=== PATIENT | female | born 1950 | race Hispanic/Latino ===

== ENCOUNTER → 2019-05-10 | Day surgery (SDC) | payer MEDICARE ==
[2019-05-07 10:06] LABS: BASOPHILS # (AUTO) 0.1 (0.0-0.1); BASOPHILS % 0.5 % (0.0-1.0); EOSINOPHILS # (AUTO) 0.2 (0.0-0.4); EOSINOPHILS % 2.5 % (0.0-6.0); HEMATOCRIT 39.5 % (34.2-44.1); LYMPHOCYTES # (AUTO) 2.4 (1.0-3.2); LYMPHOCYTES % 25.3 % (18.0-39.1); MEAN CORPUSCULAR HEMOGLOBIN 30.6 pg (28-32); MEAN CORPUSCULAR HGB CONC 35.4 g/dL (31-35); MEAN CORPUSCULAR VOLUME 86.4 fL (81-99); MONOCYTES # (AUTO) 0.5 (0.2-0.8); MONOCYTES % 5.4 % (4.4-11.3); NEUTROPHILS # (AUTO) 6.3 (2.1-6.9); NEUTROPHILS % 65.7 % (38.7-80.0); PLATELET COUNT 192 x10e3/uL (140-360); RED BLOOD COUNT 4.57 x10e6/uL (3.6-5.1); RED CELL DISTRIBUTION WIDTH 12.1 % (11.7-14.4)
[2019-05-07 10:22] LABS: ANION GAP 13.5 mmol/L (8-16); BLOOD UREA NITROGEN 13 mg/dL (7-26); BUN/CREATININE RATIO 18 (6-25); CALCIUM 9.6 mg/dL (8.4-10.2); CARBON DIOXIDE 27 mmol/L (22-29); CHLORIDE 102 mmol/L (98-107); CREATININE, SERUM 0.71 mg/dL (0.57-1.11); EST GLOMERULAR FILTRATION RATE > 60 ML/MIN (60-); GLUCOSE 140 mg/dL (74-118); POTASSIUM 3.5 mmol/L (3.5-5.1); SODIUM 139 mmol/L (136-145)
[2019-05-07 10:38] LABS: BILIRUBIN,URINE NEGATIVE (NEGATIVE); CLARITY,URINE CLEAR (CLEAR); COLOR,URINE YELLOW (YELLOW); KETONES,URINE NEGATIVE (NEGATIVE); LEUKOCYTE ESTERASE ,URINE NEGATIVE (NEGATIVE); NITRITE,URINE NEGATIVE (NEGATIVE); PROTEIN,URINE DIPSTICK NEGATIVE (NEGATIVE); URINE UROBILINOGEN 0.2 mg/dL (0.2 - 1)
--- NOTE | 2019-05-07 10:59 | Diagnostic Imaging Report ---
Chest, 2 views, 05/07/2019. History: Preop, cholecystitis. Comparison: None available. Findings: The cardiomediastinal silhouette and pulmonary vasculature are within normal limits. There is minimal biapical pleural thickening. Linear opacities are present in the right lower lobe. The lungs are otherwise clear without evidence of consolidation or pleural effusion. Degenerative changes are present throughout the thoracic spine. There are no acute osseous or soft tissue abnormalities. Impression: Right lower lobe atelectasis. Signed by: Gibran Martinez on 05/07/2019 10:56 AM
[~2019-05-10] MED LIST: AMLODIPINE BESY10 MG PO; ASPIR 8181 MG PO; ATORVASTATIN CA10 MG PO; BUPIVACAINE 0.25%/EPI 30ML SDV INJ ONE; CARVEDILOL12.5 MG PO; CEFAZOLIN SOD 1 GM VIAL ONE; DEXAMETHASONE SOD PHOS INJ 4 MG/ML VIAL ONE; FENTANYL CITRATE/PF 100MCG/2 ML INJ ONE; FUROSEMIDE40 MG PO; GLYCOPYRROLATE INJ 1MG/ 5 ML SYR ONE; KETOROLAC TROMETHAMINE 30 MG/ML VIAL ONE; LIDOCAINE HCL 2% LOCAL INJ 5 ML SDV VIAL INJ ONE; LISINOPRIL10 MG PO; METFORMIN HCL500 MG PO; MIDAZOLAM HCL 2 MG/2 ML VIAL ONE; NEOSTIGMINE 5 MG/5ML SYR ONE; ONDANSETRON HCL INJ 2MG/ML 2ML 2 MG/ML VIAL ONE; OXYBUTYNIN CHLOR5 MG PO; PANTOPRAZOLE SO40 MG PO; PROPOFOL IV EMULSION 10 MG/ML 20 ML VIAL ONE; ROCURONIUM BROMIDE 10 MG/ML 5ML VIAL ONE; SEVOFLURANE INHAL SOLN 250 ML PEN BTL ONE
--- OUTSIDE RECORDS SUMMARY | 2019-05-10 07:05 | XMS REPORT | Summary of Care ---
Author Author [facility] Organization [facility] Address Unknown Phone Unavailable Encounter HQ Emerson(FIN) [id number] Date(s): 06/19/18 - 06/19/18 [facility] [address] [address]- Discharge Disposition: Home or Self Care Attending Physician: Pamela Gibbons MD Vital Signs Most recent to 1 2 oldest [Reference Range]: Height 160.02 cm (06/19/18 10:34 AM) Temperature Oral 97.1 DegF [96.4-99.1 DegF] (06/19/18 10:34 AM) Blood Pressure 165/85 mmHg 186/80 mmHg [90-140/60-90 mmHg] *HI* *HI* (06/19/18 11:16 AM) (06/19/18 10:34 AM) Respiratory Rate 16 BRMIN [14-20 BRMIN] (06/19/18 10:34 AM) Peripheral Pulse 67 bpm Rate [60-100 bpm] (06/19/18 10:34 AM) Weight 79.091 kg (06/19/18 10:34 AM) Body Mass Index 30.89 m2 (06/19/18 10:34 AM) Problem List Condition Effective Dates Status Health Status Informant Diabetes Resolved mellitus(Confirmed) Hypertension, Active essential(Confirmed) GERD Active (gastroesophageal reflux disease)(Confirmed) Hypertension(Confirm Resolved ed) Abnormal mammogram Active of left breast(Confirmed) Mixed Active hyperlipidemia(Confi rmed) Obesity(Confirmed) Active Diabetes mellitus Active type 2, controlled(Confirmed ) Allergies, Adverse Reactions, Alerts Substance Reaction Severity Status NKDA Active Medications furosemide 20 mg oral tablet 20 mg=1 tab, PO, BID, # 180 tab, 1 Refill(s), Pharmacy: [facility]/pharmacy #[id number] Start Date: 06/19/18 Stop Date: 06/19/18 Status: Discontinued furosemide 20 mg oral tablet 20 mg=1 tab, PO, BID, # 180 tab, 1 Refill(s), Pharmacy: [facility]/pharmacy #[id number], Dose increased to BID Start Date: 06/19/18 Stop Date: 12/16/18 Status: Ordered metFORMIN 500 mg oral tablet 1,000 mg=2 tab, PO, BID, X 90 day, # 360 tab, 1 Refill(s), Pharmacy: [facility]/pharmac y #[id number] Start Date: 06/19/18 Stop Date: 12/16/18 Status: Completed Results No data available for this section Immunizations Given and Recorded Vaccine Date Status Refusal Reason influenza virus vaccine, inactivated1 05/19/18 Recorded influenza virus vaccine, inactivated2 08/08/17 Given influenza virus vaccine, inactivated 08/18/16 Recorded pneumococcal 13-valent vaccine3 11/09/17 Given pneumococcal 23-valent vaccine 07/19/15 Recorded 1Result Comment: [06/19/2018] @[facility] 2Result Comment: Patient waited in room ten mins no allergic reaction. 3Result Comment: Patient waited in room ten mins no allergic reaction. Procedures Procedure Date Related Diagnosis Body Site Status Diabetic Retinopathy Study 7 field 12/03/18 Completed stereoscopic fundus photography1, 2, 3 Mammogram4, 5, 6, 7 11/21/18 Completed Bone density scan8 11/17/17 Completed Colonoscopy9 04/13/17 Completed [id number] 04/13/17 Completed Tubal ligation Completed 1No DR. Dr Nova 2No DR. Dr Nova 3Dr Avtar 4Return to annual mammogram screening schedule is recommended.(11/17/2018) 5There is no mammographic evidence of malignancy. A 1 year screening mammogram is recommended.(11/22/2019) 6Left breast mass, needs further test. 7Pathology "Dense fibrous breast tissue with distorted benign duct elements" A follow-up left diagnostic mammogram and ultrasound in 6 months is recommended (06/09/2018) 81. Normal bone mineral density of the lumbar spine. 2. Normal bone mineral density of the left femoral neck. 9Mild diverticulosis, IH Next one in [address] Dr De La Cruz 10Gastritis, Reflux esophagitis Dr De La Cruz Social History Social History Type Response Substance Abuse Use: None. Alcohol Never Smoking Status Never smoker; Exposure to Tobacco Smoke None; Cigarette Smoking Last 365 Days No; Reg Smoking Cessation Counseling No entered on: 12/10/18 Assessment and Plan No data available for this section
--- OUTSIDE RECORDS SUMMARY | 2019-05-10 07:05 | XMS REPORT | Summary of Care ---
Author Organization Unknown Address Unknown Phone Unavailable Encounter Dates Location Diagnoses Discharge Providers Disposition 11/30/2013 [facility] Discharge Home Ovi Gann - [address] [place] [address] Diagnosis: 11/30/2013 [place] [id number]- , [place] Shoulder pain, left Reason for Visit LEFT SHOULDER PAIN 3 DAYS Vital Signs Most recent to 1 2 oldest [Reference Range]: Height 165.1 cm (11/30/2013 19:26:00 Tanya/Mills) Temperature Oral 99.1 DegF 98.1 DegF [96.4-99.1 DegF] (11/30/2013 22:23:00 Tanya/[place]) (11/30/2013 19:26:00 Tanya/[facility]) Systolic Blood 165 mmHg 199 mmHg Pressure [90-140 *HI* *HI* mmHg] (11/30/2013 22:23:00 Tanya/[place]) (11/30/2013 19:26:00 Tanya/[place]) Diastolic Blood 80 mmHg 82 mmHg Pressure [60-90 (11/30/2013 22:23:00 Tanya/[place]ills) (11/30/2013 19:26:00 Tanya/[place]) mmHg] Respiratory Rate 18 BRMIN 18 BRMIN [14-20 BRMIN] (11/30/2013 22:23:00 Tanya/[facility]ills) (11/30/2013 19:26:00 Tanya/[facility]) Peripheral Pulse 74 bpm 86 bpm Rate [60-100 bpm] (11/30/2013 22:23:00 Tanya/[facility]ills) (11/30/2013 19:26:00 Tanya/[facility]) Weight 81.818 kg (11/30/2013 19:26:00 Tanya/[facility]) Body Mass Index 30.02 m2 (11/30/2013 19:26:00 Tanya/[place]) Problem List Condition Effective Dates Status Health Status Informant Diabetes Resolved mellitus(Confirmed) Hypertension(Confirm Resolved ed) Allergies, Adverse Reactions, Alerts Status Substance Reaction Severity Active NKDA Medications Medication Instructions Start Date Stop Date Status amLODIPine 10 mg, PO, Daily, 0 Refill(s) 11/30/2013 Ordered metFORMIN PO, QAM, 0 Refill(s) 11/30/2013 Ordered Motrin 800 mg, Route: PO, Drug form: TAB, 11/30/2013 11/30/2013 Completed ONCE, Dosing Weight 81.818, kg, Priority: STAT, Start date: 11/30/13 21:41:00, Stop date: 11/30/13 21:41:00 Motrin 600 mg oral 600 mg=1 tab, PO, Q6H, take with 11/30/2013 Ordered tablet food, # 30 tab, 0 Refill(s) take with food Toprol-XL 50 mg oral PO, BID, 0 Refill(s) 11/30/2013 Ordered tablet, extended release Zestoretic 20 See Instructions, PO, daily, 0 11/30/2013 Ordered mg-12.5 mg oral Refill(s) tablet daily Results ELECTROLYTES Most recent to 1 oldest [Reference Range]: Sodium Lvl [135-145 139 mEq/L mEq/L] (11/30/2013 20:38:00 [facility]) Potassium Lvl 4.2 mEq/L [3.5-5.1 mEq/L] (11/30/2013 20:38:00 [facility]) Chloride Lvl [95-109 102 mEq/L mEq/L] (11/30/2013 20:38:00 [facility]) CO2 [24-32 mEq/L] 27 mEq/L (11/30/2013 20:38:00 [facility]) AGAP [10.0-20.0 14.2 mEq/L mEq/L] (11/30/2013 20:38:00 [facility]) CHEM PANEL Most recent to 1 oldest [Reference Range]: Creatinine Lvl 0.1 mg/dL [0.5-1.4 mg/dL] *LOW* (11/30/2013 20:38:00 [facility]) eGFR 177 mL/min/1.73m2 1 *NA* (11/30/2013 20:38:00 [facility]) BUN [7-22 mg/dL] 15 mg/dL (11/30/2013 20:38:00 [facility]) Glucose Lvl [70-99 141 mg/dL 2 mg/dL] *HI* (11/30/2013 20:38:00 [facility]) Calcium Lvl 9.5 mg/dL [8.5-10.5 mg/dL] (11/30/2013 20:38:00 [facility]) 1Result Comment: The eGFR is calculated using the CKD-EPI formula. In most young, healthy individuals the eGFR will be >90 mL/min/1.73m2. The eGFR declines with age. An eGFR of 60-89 may be normal in some populations, particularly the elderly, for whom the CKD-EPI formula has not been extensively validated. Use of the eGFR is not recommended in the following populations: Individuals with unstable creatinine concentrations, including patients and those with serious co-morbid conditions. Patients with extremes in muscle mass or diet. The data above are obtained from the National Kidney Disease Education Program ( NKDEP) which additionally recommends that when the eGFR is used in patients with extremes of body mass index for purposes of drug dosing, the eGFR should be mul tiplied by the estimated BMI. 2Interpretive Data: Adult reference range values reflect the clinical guidelines of the [place] [employer]. IMMUNOLOGY Most recent to 1 oldest [Reference Range]: CRP [<=2.9 mg/L] 8.6 mg/L *HI* (11/30/2013 20:38:00 [facility]) HEMATOLOGY Most recent to 1 oldest [Reference Range]: WBC [3.7-10.4 K/CMM] 14.4 K/CMM *HI* (11/30/2013 20:38:00 [facility]) RBC [4.20-5.40 5.04 M/CMM M/CMM] (11/30/2013 20:38:00 [facility]) Hgb [12.0-16.0 g/dL] 15.6 g/dL (11/30/2013 20:38:00 [facility]) Hct [36.0-48.0 %] 44.8 % (11/30/2013 20:38:00 [facility]) MCV [81.0-99.0 fL] 88.7 fL (11/30/2013 20:38:00 [facility]) MCH [27.0-31.0 pg] 31.0 pg (11/30/2013 20:38:00 [facility]) MCHC [32.0-36.0 35.0 g/dL g/dL] (11/30/2013 20:38:00 [facility]) RDW [11.5-14.5 %] 12.8 % (11/30/2013 20:38:00 [facility]) Platelet [133-450 275 K/CMM K/CMM] (11/30/2013 20:38:00 [facility]) MPV [7.4-10.4 fL] 10.6 fL *HI* (11/30/2013 20:38:00 [facility]) Segs [45.0-75.0 %] 72.5 % (11/30/2013 20:38:00 [facility]) Lymphocytes 20.4 % [20.0-40.0 %] (11/30/2013 20:38:00 [facility]) Monocytes [2.0-12.0 5.6 % %] (11/30/2013 20:38:00 [facility]) Eosinophils [0.0-4.0 1.1 % %] (11/30/2013 20:38:00 [facility]) Basophils [0.0-1.0 0.4 % %] (11/30/2013 20:38:00 [facility]) Segs-Bands # 10.5 K/CMM [1.5-8.1 K/CMM] *HI* (11/30/2013 20:38:00 [facility]) Lymphocytes # 2.9 K/CMM [1.0-5.5 K/CMM] (11/30/2013 20:38:00 [facility]) Monocytes # [0.0-0.8 0.8 K/CMM K/CMM] (11/30/2013 20:38:00 [facility]) Eosinophils # 0.2 K/CMM [0.0-0.5 K/CMM] (11/30/2013 20:38:00 [facility]) Basophils # [0.0-0.2 0.1 K/CMM K/CMM] (11/30/2013 20:38:00 [facility]) Sed Rate [0-20 29 mm/hr mm/hr] *HI* (11/30/2013 20:38:00 [facility]) Medications Administered During Your Visit No data available for this section Immunizations No data available for this section Social History Social History Type Response Smoking Status Use: Never smoker. Tobacco smoke exposure: None. Did the Patient Smoke Cigarettes Anytime During the Last 365 Days? No. Cessation Counseling Provided? No.
--- OUTSIDE RECORDS SUMMARY | 2019-05-10 07:05 | XMS REPORT | Summary of Care ---
Author Author [facility] Organization [facility] Address Unknown Phone Unavailable Encounter HQ Jose_gerardo(FIN) [id number] Date(s): 04/03/18 - 04/04/18 [facility] [address], [address] [place] [address] [phone] Vital Signs No data available for this section Problem List Condition Effective Dates Status Health Status Informant Diabetes Resolved mellitus(Confirmed) Hypertension, Active essential(Confirmed) GERD Active (gastroesophageal reflux disease)(Confirmed) Hyperlipidemia(Confi Active rmed) Hypertension(Confirm Resolved ed) Abnormal mammogram Active of left breast(Confirmed) Obesity(Confirmed) Active Diabetes mellitus Active type 2, controlled(Confirmed ) Allergies, Adverse Reactions, Alerts Substance Reaction Severity Status NKDA Active Medications No data available for this section Results No data available for this section Immunizations Given and Recorded Vaccine Date Status Refusal Reason pneumococcal 13-valent vaccine1 11/09/17 Given influenza virus vaccine, inactivated2 08/08/17 Given influenza virus vaccine, inactivated 08/18/16 Recorded pneumococcal 23-valent vaccine 07/19/15 Recorded 1Result Comment: Patient waited in room ten mins no allergic reaction. 2Result Comment: Patient waited in room ten mins no allergic reaction. Procedures Procedure Date Related Diagnosis Body Site Status Bone density scan1 11/17/17 Completed Mammogram2, 3 11/17/17 Completed Diabetic Retinopathy Study 7 field 10/24/17 Completed stereoscopic fundus photography4 Colonoscopy5 04/13/17 Completed Endoscopy6 04/13/17 Completed Tubal ligation Completed 11. Normal bone mineral density of the lumbar spine. 2. Normal bone mineral density of the left femoral neck. 2Left breast mass, needs further test. 3Pathology "Dense fibrous breast tissue with distorted benign duct elements" A follow-up left diagnostic mammogram and ultrasound in 6 months is recommended (06/09/2018) 4Dr Avtar 5Mild diverticulosis, IH Next one in 10 [address] Dr De La Cruz 6Gastritis, Reflux esophagitis Dr De La Cruz Social History Social History Type Response Substance Abuse Use: None. Alcohol Never Smoking Status Never smoker; Exposure to Tobacco Smoke None; Cigarette Smoking Last 365 Days No; Reg Smoking Cessation Counseling No entered on: 04/02/18 Assessment and Plan No data available for this section
--- OUTSIDE RECORDS SUMMARY | 2019-05-10 07:05 | XMS REPORT | Summary of Care ---
Author Author [facility] Organization [facility] Address Unknown Phone Unavailable Encounter HQ Emerson(FIN) [id number] Date(s): 11/21/18 - 11/21/18 [facility] [address] [place] [address]- Encounter Diagnosis Encounter for screening mammogram for malignant neoplasm of breast (Final) - Discharge Disposition: Home or Self Care Attending Physician: Pamela Gibbons MD Referring Physician: Pamela Gibbons MD Vital Signs No data available for this [...] 23-valent vaccine 07/19/15 Recorded 1Result Comment: [06/19/2018] @[facility] 2Result Comment: Patient waited in room ten mins no allergic reaction. 3Result Comment: Patient waited in room ten mins no allergic reaction. Procedures Procedure Date Related Diagnosis Body Site Status Mammogram1, 2, 3, 4 11/21/18 Completed Diabetic Retinopathy Study 7 field 09/03/18 Completed stereoscopic fundus photography5, 6 Bone density scan7 11/17/17 Completed Colonoscopy8 7/27/17 Completed Endoscopy9 04/13/17 Completed Tubal ligation Completed 1Return to annual mammogram screening schedule is recommended.(11/17/2018) 2There is no mammographic evidence of malignancy. A 1 year screening mammogram is recommended.(11/22/2019) 3Left breast mass, needs further test. 4Pathology "Dense fibrous breast tissue with distorted benign duct elements" A follow-up left diagnostic mammogram and ultrasound in 6 months is recommended (06/09/2018) 5No DR. Dr Nova 6Dr Avtar 71. Normal bone mineral density of the lumbar spine. 2. Normal bone mineral density of the left femoral neck. 8Mild diverticulosis, IH Next one in 10 years Dr De La Cruz 9Gastritis, Reflux esophagitis Dr De La Cruz Social History Social History Type Response Substance Abuse Use: None. Alcohol Never Smoking Status Never smoker; Exposure to Tobacco Smoke None; Cigarette Smoking Last 365 Days No; Reg Smoking Cessation Counseling No entered on: 11/12/18 Assessment and Plan No data available for this section
--- OUTSIDE RECORDS SUMMARY | 2019-05-10 07:05 | XMS REPORT | Summary of Care ---
Author Author [facility] Organization [facility] Address Unknown Phone Unavailable Encounter HQ Emerson(FIN) [id number] Date(s): 08/08/17 - 08/08/17 [facility] [address], [address] [place], [place] [address]- [phone] Discharge Disposition: Home or Self Care Attending Physician: Pamela Gibbons MD Vital Signs Most recent to 1 oldest [Reference Range]: Height 160.02 cm (08/08/17 1:19 PM) Temperature Oral 97.4 DegF [96.4-99.1 DegF] (08/08/17 1:19 PM) Blood Pressure 156/77 mmHg [90-140/60-90 mmHg] *HI* (08/08/17 1:19 PM) Respiratory Rate 16 BRMIN [14-20 BRMIN] (08/08/17 1:19 PM) Peripheral Pulse 81 bpm Rate [60-100 bpm] (08/08/17 1:19 PM) Weight 81.818 kg (08/08/17 1:19 PM) Body Mass Index 31.95 m2 (08/08/17 1:19 PM) Problem List Condition Effective Dates Status Health Status Informant Diabetes Resolved mellitus(Confirmed) Hypertension, Active essential(Confirmed) GERD Active (gastroesophageal reflux disease)(Confirmed) Hyperlipidemia(Confi Active rmed) Hypertension(Confirm Resolved ed) Obesity(Confirmed) Active Diabetes mellitus Active type 2, controlled(Confirmed ) Allergies, Adverse Reactions, Alerts Substance Reaction Severity Status NKDA Active Medications amLODIPine 10 mg oral tablet 10 mg=1 tab, PO, Daily, # 90 tab, 1 Refill(s), Pharmacy: [facility]/pharmacy #[id number] Start Date: 08/08/17 Status: Ordered atorvastatin 10 mg oral tablet 10 mg=1 tab, PO, Bedtime, # 90 tab, 1 Refill(s), Pharmacy: [facility]/pharmacy #[id number] Start Date: 08/08/17 Status: Ordered Blood Glucose Test Strips 1 box, TOP, Before Breakfast, # 100 strip, 11 Refill(s) Start Date: 08/08/17 Status: Ordered furosemide 20 mg oral tablet 20 mg=1 tab, PO, Daily, # 30 tab, 3 Refill(s), [id number] Start Date: 08/08/17 Status: Ordered latanoprost ophthalmic 0.005% solution 1 drp, Each Affected Eye, Bedtime, # 1 btl, 1 Refill(s) Start Date: 08/08/17 Status: Ordered Results No data available for this section Immunizations Given and Recorded Vaccine Date Status Refusal Reason influenza virus vaccine, inactivated1 08/08/17 Given influenza virus vaccine, inactivated 08/18/16 Recorded pneumococcal 23-valent vaccine 07/19/15 Recorded 1Result Comment: Patient waited in room ten mins no allergic reaction. Procedures Procedure Date Related Diagnosis Body Site Examination of eye1 05/02/17 Colonoscopy2 04/13/17 Endoscopy3 04/13/17 Eye examination4 05/13/16 Tub[address] 1[address] Avtar 2Mild diverticulosis, IH Next one in 10 [address] Dr De La Cruz 3Gastritis, Reflux esophagitis Dr De La Cruz 4Dr.Meliton Nova Social History Social History Type Response Alcohol Never Smoking Status Never smoker; Exposure to Tobacco Smoke None; Cigarette Smoking Last 365 Days No; Reg Smoking Cessation Counseling No Assessment and Plan No data available for this section
--- OUTSIDE RECORDS SUMMARY | 2019-05-10 07:05 | XMS REPORT | Summary of Care ---
Author Author [facility] Organization [facility] Address Unknown Phone Unavailable Encounter HQ Encntr_alias(FIN) [id number] Date(s): 08/27/17 - 08/28/17 [facility] [address], [address] [place] [address]- [phone] Vital Signs No data available for this section Problem List Condition Effective Dates Status Health Status Informant Diabetes Resolved mellitus(Confirmed) Hypertension, Active essential(Confirmed) GERD Active (gastroesophageal reflux disease)(Confirmed) Hyperlipidemia(Confi Active rmed) Hypertension(Confirm Resolved ed) Obesity(Confirmed) Active Diabetes mellitus Active type 2, controlled(Confirmed ) Allergies, Adverse Reactions, Alerts Substance Reaction Severity Status NKDA Active Medications pantoprazole 20 mg oral enteric coated tablet 20 mg=1 tab, PO, Daily, # 30 tab, 0 Refill(s), Pharmacy: [facility]/pharmacy #[id number] Start Date: 08/27/17 Stop Date: 09/26/17 Status: Ordered Results No data available for [...]
--- OUTSIDE RECORDS SUMMARY | 2019-05-10 07:05 | XMS REPORT | Continuity of Care Document ---
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 Name Role Phone [employer] Unavailable Unavailable Problems Problem Status Onset Date Classification Date Reported Comments Source ROUTINE MAMMO - NO SYMPTOMS Active 11/13/2018 [facility] Unspecified lump in the left breast, unspecified quadrant 07/03/2018 01/14/2019 [facility] Diarrhea, unspecified 04/02/2018 10/20/2018 [facility] DX: ABNORMAL MAMMOGRAM OF LEFT BREAST Active 03/30/2018 [facility] NAUSEA [facility] 11/27/2017 [facility] DX: ABN MAMMO LT BREAST Active 11/21/2017 [facility] ROUTINE SCREENING LAST MMG W///DX: Active 11/14/2017 [facility] Discharge Diagnosis: Shoulder pain, left 11/30/2013 12/03/2013 [facility] LEFT SHOULDER PAIN 3 DAYS Active 11/30/2013 [facility] Diabetes mellitus (disorder) Resolved Problem 04/23/2019 [facility] Essential hypertension (disorder) Active Problem 04/23/2019 [facility] Gastroesophageal reflux disease (disorder) Active Problem 04/23/2019 [facility] Hypertensive disorder, systemic arterial (disorder) Resolved Problem 04/23/2019 [facility] Obesity (disorder) Active Problem 04/23/2019 [facility] Diabetes mellitus type 2 (disorder) Active Problem 04/23/2019 [facility] Encounter for screening mammogram for malignant neoplasm of breast 11/23/2018 [facility] Age-related osteoporosis without current pathological fracture 02/23/2018 [facility] Hyperlipidemia (disorder) Active Problem 11/23/2018 [facility] Other abnormal and inconclusive findings on diagnostic imaging of breast 01/14/2019 [facility] Unspecified lump in the left breast, upper outer quadrant 03/05/2018 [facility] Mammography abnormal (finding) Active Problem 02/18/2019 [facility] Essential (primary) hypertension 10/20/2018 [facility] Type 2 diabetes mellitus without complications 10/20/2018 [facility] ferry terminal supervisor (current) use of oral hypoglycemic drugs 10/20/2018 [facility] Mixed hyperlipidemia (disorder) Active Problem 04/23/2019 [facility] INCONCLUSIVE MAMMOGRAM Active [facility] AGE-RELATED OSTEOPOROSIS W/O CURRENT PAT Active [facility] OTH ABN AND INCONCLUSIVE FINDINGS ON DX Active [facility] Medications Medication Details Route Status Patient Instructions Ordering Provider Order Date Source pantoprazole 20 mg oral enteric coated tablet 20 mg=1 tab, PO, Daily, # 90 tab, 1 Refill(s), [id number] pantoprazole 20 mg oral enteric coated tablet See Instructions, TAKE 1 TABLET BY MOUTH DAILY, # 90 tab, 1 Refill(s), Pharmacy: [facility]/pharmacy #[id number] Active 03/12/2019 [facility] lisinopril 40 mg oral tablet 40 mg=1 tab, PO, BID, # 180 tab, 1 Refill(s), Pharmacy: [facility]/pharmacy #[id number] Active 03/12/2019 [facility] Furosemide 20 MG Oral Tablet 20 mg=1 tab, PO, BID, # 180 tab, 1 Refill(s), Pharmacy: [facility]/pharmacy #[id number], Dose increased to BID Active 03/12/2019 [facility] carvedilol 12.5 mg oral tablet See Instructions, TOME 2 TABLETAS POR VIA ORAL EN LA MANANA Y 1 TABLETA EN LA NOCHE, # 45 tab, 1 Refill(s), Pharmacy: [facility]/pharmacy #[id number] Active 03/12/2019 [facility] atorvastatin 10 mg oral tablet See Instructions, TOME LISA TABLETA POR VIA ORAL TODOS [place]S AL ACOSTARSE, # 90 tab, 1 Refill(s), Pharmacy: [facility]/pharmacy #[id number] Active 03/12/2019 [facility] amLODIPine 10 mg oral tablet =1 tab, PO, Daily, # 90 tab, 1 Refill(s), Pharmacy: [facility]/pharmacy #[id number] Active 03/12/2019 [facility] Metformin hydrochloride 500 MG Oral Tablet 1,000 mg=2 tab, PO, BID-Meals, # 360 tab, 1 Refill(s), [id number] Active 03/12/2019 [facility] Metformin hydrochloride 500 MG Oral Tablet 1,000 mg=2 tab, PO, BID-Meals, # 360 tab, 1 Refill(s) Inactive 03/12/2019 [facility] oxybutynin 5 mg oral tablet 5 mg=1 tab, PO, BID, # 180 tab, 1 Refill(s) Active 03/12/2019 [facility] carvedilol 12.5 mg oral tablet See Instructions, TOME 2 TABLETAS POR VIA ORAL EN LA MANANA Y 1 TABLETA EN LA NOCHE, # 135 tab, 1 Refill(s), [id number] Active 12/10/2018 [facility] carvedilol 12.5 mg oral tablet See Instructions, 2 tab PO AM and 1 tab pm, # 45 tab, 1 Refill(s), [id number] Active 11/12/2018 [facility] Metoprolol Succinate ER 50 mg oral tablet, extended release =1 tab, PO, BID, # 180 tab, Refill(s) 1, Pharmacy: [facility]/pharmacy #[id number] No Longer Active 11/09/2018 [facility] pantoprazole 20 mg oral enteric coated tablet See Instructions, TAKE 1 TABLET BY MOUTH DAILY, # 90 tab, 1 Refill(s), Pharmacy: [facility]/pharmacy #[id number] No Longer Active 10/03/2018 [facility] atorvastatin 10 mg oral tablet =1 tab, PO, Bedtime, # 90 tab, [id number] Active 09/22/2018 [facility] ONE TOUCH ULTRA BLUE TEST STRP See Instructions, # 100 strip, Refill(s) 12, USE DIRECTED EVERY DAY, Pharmacy: [facility]/pharmacy #[id number] Active 09/14/2018 [facility] ciprofloxacin 500 mg oral tablet 500 mg=1 tab, PO, Q12H, X 10 day, # 20 tab, 0 Refill(s), Pharmacy: [facility]/pharmacy #[id number] No Longer Active 07/31/2018 [facility] Metformin hydrochloride 500 MG Oral Tablet 1,000 mg=2 tab, PO, BID, X 90 day, # 360 tab, 1 Refill(s), Pharmacy: [facility]/pharmacy #[id number] No Longer Active 06/19/2018 [facility] Furosemide 20 MG Oral Tablet 20 mg=1 tab, PO, BID, # 180 tab, 1 Refill(s), [id number], Dose increased to BID Active 06/19/2018 [facility] Furosemide 20 MG Oral Tablet 20 mg=1 tab, PO, BID, # 180 tab, 1 Refill(s), [id number] Inactive 06/19/2018 [facility] Sodium Chloride 0.9% (Bolus) IV 1,000 mL, Infuse Over: 1 hr, Route: IV, ONCE, Priority: STAT, Dosing Weight 79.545 kg, Start date: 04/02/18 8:22:00 CDT, Stop date: 04/02/18 8:22:00 CDT Inactive 04/02/2018 [facility] Ondansetron 4 mg, 2 mL, Route: IVP, Drug form: INJ, ONCE, Dosing Weight 79.545, kg, Priority: STAT, Start date: 04/02/18 8:22:00 CDT, Stop date: 04/02/18 8:22:00 CDTNotes: (Same as: Shy) MEDICATION WASTE * Product Size: 4 mg Product Wasted: ___ mg Inactive 04/02/2018 [facility] pantoprazole 20 mg oral enteric coated tablet See Instructions, TAKE 1 TABLET BY MOUTH DAILY, # 90 tab, 1 Refill(s) Active 03/28/2018 [facility] 24 HR Metoprolol Tartrate 50 MG Extended Release Tablet [Toprol] 50 mg=1 tab, PO, BID, # 180 tab, 1 Refill(s) Active 03/28/2018 [facility] Metformin hydrochloride 500 MG Oral Tablet 1,000 mg=2 tab, PO, BID, X 90 day, # 360 tab, 1 Refill(s) Active 03/28/2018 [facility] lisinopril 40 mg oral tablet 40 mg=1 tab, PO, BID, # 180 tab, 1 Refill(s) Active 03/28/2018 [facility] Furosemide 20 MG Oral Tablet See Instructions, 1 tab PO in AM take half tab in PM, # 135 tab, 1 Refill(s) Active 03/28/2018 [facility] atorvastatin 10 mg oral tablet 10 mg=1 tab, PO, Bedtime, # 90 tab, 1 Refill(s) Active 03/28/2018 [facility] Aspirin Enteric Coated 81 mg oral delayed release tablet See Instructions, TAKE 1 TABLET BY MOUTH DAILY, # 100 tab, 1 Refill(s) Active 03/28/2018 [facility] amLODIPine 10 mg oral tablet 10 mg=1 tab, PO, Daily, # 90 tab, 1 Refill(s) Active 03/28/2018 [facility] Trazodone Hydrochloride 50 MG Oral Tablet 50 mg=1 tab, PO, Bedtime, # 30 tab, 1 Refill(s), [id number] Active 11/09/2017 [facility] Furosemide 20 MG Oral Tablet See Instructions, 1 tab PO in AM take half tab in PM, # 135 tab, 1 Refill(s), Pharmacy: [facility]/pharmacy #[id number] Active 11/09/2017 [facility] pantoprazole 20 mg oral enteric coated tablet See Instructions, TAKE 1 TABLET BY MOUTH DAILY, # 90 tab, 1 Refill(s), Pharmacy: [facility]/pharmacy #[id number] Active 11/09/2017 [facility] Furosemide 20 MG Oral Tablet 20 mg=1 tab, PO, Daily, # 90 tab, 1 Refill(s), Pharmacy: [facility]/pharmacy #[id number] Inactive 11/09/2017 [facility] Metformin hydrochloride 500 MG Oral Tablet 1,000 mg=2 tab, PO, BID, X 90 day, # 360 tab, 1 Refill(s), Pharmacy: [facility]/pharmacy #[id number] Active 11/09/2017 [facility] lisinopril 40 mg oral tablet 40 mg=1 tab, PO, BID, # 180 tab, 1 Refill(s), Pharmacy: [facility]/pharmacy #[id number] Active 11/09/2017 [facility] amLODIPine 10 mg oral tablet 10 mg=1 tab, PO, Daily, # 90 tab, 1 Refill(s), Pharmacy: [facility]/pharmacy #[id number] Active 11/09/2017 [facility] atorvastatin 10 mg oral tablet 10 mg=1 tab, PO, Bedtime, # 90 tab, 1 Refill(s), Pharmacy: [facility]/pharmacy #[id number] Active 11/09/2017 [facility] 24 HR Metoprolol Tartrate 50 MG Extended Release Tablet [Toprol] 50 mg=1 tab, PO, BID, # 180 tab, 1 Refill(s), Pharmacy: [facility]/pharmacy #[id number] Active 11/09/2017 [facility] pantoprazole 20 mg oral enteric coated tablet 20 mg=1 tab, PO, Daily, # 30 tab, 0 Refill(s), [facility] Active 08/27/2017 [facility] Blood Glucose Test Strips 1 box, TOP, Before Breakfast, # 100 strip, 11 Refill(s) Active 08/08/2017 [facility] atorvastatin 10 mg oral tablet 10 mg=1 tab, PO, Bedtime, # 90 tab, 1 Refill(s), [facility] Active 08/08/2017 [facility] amLODIPine 10 mg oral tablet 10 mg=1 tab, PO, Daily, # 90 tab, 1 Refill(s), [facility] Active 08/08/2017 [facility] Furosemide 20 MG Oral Tablet 20 mg=1 tab, PO, Daily, # 30 tab, 3 Refill(s), [facility] Active 08/08/2017 [facility] latanoprost 0.05 MG/ML Ophthalmic Solution 1 drp, Each Affected Eye, Bedtime, # 1 btl, 1 Refill(s) Active 08/08/2017 [facility] Ibuprofen 600 MG Oral Tablet [Motrin] 600 mg=1 tab, PO, Q6H, take with food, # 30 tab, 0 Refill(s)take with food Active 12/01/2013 [facility] Motrin 800 mg, Route: PO, Drug form: TAB, ONCE, Dosing Weight 81.818, kg, Priority: STAT, Start date: 11/30/13 21:41:00, Stop date: 11/30/13 21:41:00 Inactive 12/01/2013 [facility] Metformin PO, QAM, 0 Refill(s) Active 12/01/2013 [facility] Amlodipine 10 mg, PO, Daily, 0 Refill(s) Active 12/01/2013 [facility] Hydrochlorothiazide 12.5 MG / Lisinopril 20 MG Oral Tablet [Zestoretic 20/12.5] See Instructions, PO, daily, 0 Refill(s)daily Active 12/01/2013 [facility] 24 HR Metoprolol Tartrate 50 MG Extended Release Tablet [Toprol] PO, BID, 0 Refill(s) Active 12/01/2013 [facility] Allergies, Adverse Reactions, Alerts Substance Category Reaction Severity Reaction type Status Date Reported Comments Source No Known Medication Allergies Assertion Drug allergy [facility] Immunizations Immunization Date Given Site Status Last Updated Comments Source influenza virus vaccine, inactivated<sup>1</sup> 05/19/2018 completed [facility] Result Comment: [06/19/2018] @[facility] pneumococcal 13-valent vaccine<sup>3</sup> 11/09/2017 Left Deltoid completed [facility] Result Comment: Patient waited in room ten mins no allergic reaction. Medical [facility] pneumococcal 13-valent vaccine<sup>1</sup> 11/09/2017 Left Deltoid completed [facility] Result Comment: Patient waited in room ten mins no allergic reaction. Medical [facility] influenza virus vaccine, inactivated<sup>1</sup> 08/08/2017 Left Deltoid completed [facility] Result Comment: Patient waited in room ten mins no allergic reaction. [facility] influenza virus vaccine, inactivated<sup>2</sup> 08/08/2017 Left Deltoid completed [facility] Result Comment: Patient waited in room ten mins no allergic reaction. [facility] influenza virus vaccine, inactivated 08/18/2016 completed [facility] pneumococcal 23-valent vaccine 07/19/2015 completed [facility] Results Order Name Results Value Reference Range Date Interpretation Comments Source CHEM PANEL Lipase Lvl 108 73 - 393 04/02/2018 [facility] CHEM PANEL Phosphorus 2.8 2.5 - 4.5 04/02/2018 [facility] CHEM PANEL Magnesium Lvl 1.7 1.8 - 2.4 04/02/2018 [facility] CHEM PANEL Lactic Acid Lvl 1.0 0.5 - 2.2 04/02/2018 [facility] CHEM PANEL Globulin 4.0 2.7 - 4.2 04/02/2018 [facility] CHEM PANEL A/G Ratio 0.9 0.7 - 1.6 04/02/2018 [facility] CHEM PANEL Bili Direct 0.2 0.0 - 0.3 04/02/2018 [facility] CHEM PANEL Bili Indirect 0.3 0.0 - 1.0 04/02/2018 [facility] CHEM PANEL Bili Total 0.5 0.2 - 1.3 04/02/2018 [facility] CHEM PANEL AST 33 0 - 37 04/02/2018 [facility] CHEM PANEL Alk Phos 106 39 - 136 04/02/2018 [facility] CHEM PANEL Albumin Lvl 3.7 3.5 - 5.0 04/02/2018 [facility] CHEM PANEL ALT 53 0 - 65 04/02/2018 [facility] CHEM PANEL Total Protein 7.7 6.4 - 8.4 04/02/2018 [facility] CHEM PANEL eGFR 98 04/02/2018 Result Comment: The eGFR is calculated using the [...] from the National Kidney Disease Education Program (NKDEP) which additionally recommends that when the eGFR is used in patients with extremes of body mass index for purposes of drug dosing, the eGFR should be multiplied by the estimated BMI. [facility] CHEM PANEL CO2 29 24 - 32 04/02/2018 [facility] CHEM PANEL Calcium Lvl 8.5 8.5 - 10.5 04/02/2018 [facility] CHEM PANEL Creatinine Lvl 0.54 0.50 - 1.40 04/02/2018 [facility] CHEM PANEL Potassium Lvl 3.5 3.5 - 5.1 04/02/2018 [facility] CHEM PANEL Chloride Lvl 108 95 - 109 04/02/2018 [facility] CHEM PANEL Sodium Lvl 146 135 - 145 04/02/2018 [facility] CHEM PANEL BUN 6 7 - 22 04/02/2018 [facility] CHEM PANEL Glucose Lvl 131 70 - 99 04/02/2018 [facility] CHEM PANEL AGAP 12.5 10.0 - 20.0 04/02/2018 [facility] HEMATOLOGY Monocytes 6.1 2.0 - 12.0 04/02/2018 [facility] Lymphocytes 18.3 20.0 - 40.0 04/02/2018 [facility] Segs 72.1 45.0 - 75.0 04/02/2018 [facility] Lymphocytes # 1.7 1.0 - 5.5 04/02/2018 [facility] Neutrophils # 6.6 1.5 - 8.1 04/02/2018 [facility] HEMATOLOGY Basophils 0.4 0.0 - 1.0 04/02/2018 [facility] Eosinophils 3.1 0.0 - 4.0 04/02/2018 [facility] Monocytes # 0.6 0.0 - 0.8 04/02/2018 [facility] Eosinophils # 0.3 0.0 - 0.5 04/02/2018 [facility] MCHC 35.4 32.0 - 36.0 04/02/2018 [facility] MCH 30.9 27.0 - 31.0 04/02/2018 [facility] Platelet 226 133 - 450 04/02/2018 [facility] RDW 12.8 11.5 - 14.5 04/02/2018 [facility] MPV 8.2 7.4 - 10.4 04/02/2018 [facility] Hct 40.4 36.0 - 48.0 04/02/2018 [facility] Hgb 14.3 12.0 - 16.0 04/02/2018 [facility] WBC 9.2 3.7 - 10.4 04/02/2018 [facility] RBC 4.63 4.20 - 5.40 04/02/2018 [facility] MCV 87.2 80.0 - 98.0 04/02/2018 [facility] URINE AND STOOL UA Bili Negative *NA* (04/02/18 8:30 AM) Negative 04/02/2018 [facility] URINE AND STOOL UA Ketones Negative mg/dL Negative mg/dL 04/02/2018 [facility] URINE AND STOOL UA Blood Moderate *ABN* (04/02/18 8:30 AM) Negative 04/02/2018 [facility] URINE AND STOOL UA Urobilinogen 2.0 0.1 - 1.0 04/02/2018 [facility] URINE AND STOOL UA Nitrite Negative (04/02/18 8:30 AM) Negative 04/02/2018 [facility] URINE AND STOOL UA Leuk Est Negative (04/02/18 8:30 AM) Negative 04/02/2018 [facility] URINE AND STOOL UA WBC 1 0 - 5 04/02/2018 [facility] URINE AND STOOL UA Sq Epi Few /LPF Few /LPF 04/02/2018 [facility] URINE AND STOOL UA Bacteria Occasional /HPF None Seen /HPF 04/02/2018 [facility] URINE AND STOOL UA RBC 5 0 - 2 04/02/2018 [facility] URINE AND STOOL UA Mucus Few /LPF None Seen /LPF 04/02/2018 [facility] URINE AND STOOL UA Turbidity Slight *ABN* (04/02/18 8:30 AM) Clear 04/02/2018 [facility] URINE AND STOOL UA Spec Grav 1.014 <=1.030 04/02/2018 [facility] URINE AND STOOL UA pH 5.0 5.0 - 8.0 04/02/2018 [facility] URINE AND STOOL UA Glucose Negative mg/dL Negative mg/dL 04/02/2018 [facility] URINE AND STOOL UA Protein Negative mg/dL Negative mg/dL 04/02/2018 [facility] URINE AND STOOL UA Color Yellow *NA* (04/02/18 8:30 AM) Yellow 04/02/2018 [facility] CHEM PANEL eGFR 177 12/01/2013 <sup>1</sup>Result Comment: The eGFR is calculated using the CKD-EPI formula. In most young, healthy individuals the eGFR will be >90 mL/min/1.73m2. The eGFR declines with age. An eGFR of 60-89 may be normal in some populations, particularly the elderly, for whom the CKD-EPI formula has not been extensively validated. Use of the eGFR is not recommended in the following populations:& lt;br/>
Individuals with unstable creatinine concentrations, including patients and those with serious co-morbid conditions.

Patients with extremes in muscle mass or diet.

The data above are obtained from the National Kidney Disease Education Program (NKDEP) which additionally recommends that when the eGFR is used in patients with extremes of body mass index for purposes of drug dosing, the eGFR should be multiplied by the estimated BMI. [facility] CHEM PANEL AGAP 14.2 10.0 - 20.0 12/01/2013 [facility] CHEM PANEL BUN 15 7 - 22 12/01/2013 [facility] CHEM PANEL Glucose Lvl 141 70 - 99 12/01/2013 <sup>2</sup>Interpretive Data: Adult reference range values reflect the clinical guidelines
of the [place] [employer]. [facility] CHEM PANEL Sodium Lvl 139 135 - 145 12/01/2013 [facility] CHEM PANEL CO2 27 24 - 32 12/01/2013 [facility] CHEM PANEL Potassium Lvl 4.2 3.5 - 5.1 12/01/2013 [facility] CHEM PANEL Chloride Lvl 102 95 - 109 12/01/2013 [facility] CHEM PANEL Calcium Lvl 9.5 8.5 - 10.5 12/01/2013 [facility] CHEM PANEL Creatinine Lvl 0.1 0.5 - 1.4 12/01/2013 [facility] HEMATOLOGY Sed Rate 29 0 - 20 12/01/2013 [facility] HEMATOLOGY MCV 88.7 81.0 - 99.0 12/01/2013 [facility] HEMATOLOGY RBC X 10x6 5.04 4.20 - 5.40 12/01/2013 [facility] HEMATOLOGY Hct 44.8 36.0 - 48.0 12/01/2013 [facility] HEMATOLOGY MCH 31.0 27.0 - 31.0 12/01/2013 [facility] HEMATOLOGY Platelet 275 133 - 450 12/01/2013 [facility] HEMATOLOGY MCHC 35.0 32.0 - 36.0 12/01/2013 [facility] HEMATOLOGY RDW 12.8 11.5 - 14.5 12/01/2013 [facility] HEMATOLOGY MPV 10.6 7.4 - 10.4 12/01/2013 [facility] HEMATOLOGY Hgb 15.6 12.0 - 16.0 12/01/2013 [facility] HEMATOLOGY WBC X 10x3 14.4 3.7 - 10.4 12/01/2013 [facility] HEMATOLOGY Basophils # 0.1 0.0 - 0.2 12/01/2013 [facility] HEMATOLOGY Monocytes 5.6 2.0 - 12.0 12/01/2013 [facility] HEMATOLOGY Eosinophils 1.1 0.0 - 4.0 12/01/2013 [facility] HEMATOLOGY Lymphocytes 20.4 20.0 - 40.0 12/01/2013 [facility] HEMATOLOGY Segs 72.5 45.0 - 75.0 12/01/2013 [facility] HEMATOLOGY Segs-Bands # 10.5 1.5 - 8.1 12/01/2013 [facility] HEMATOLOGY Lymphocytes # 2.9 1.0 - 5.5 12/01/2013 [facility] HEMATOLOGY Monocytes # 0.8 0.0 - 0.8 12/01/2013 [facility] HEMATOLOGY Eosinophils # 0.2 0.0 - 0.5 12/01/2013 [facility] HEMATOLOGY Basophils 0.4 0.0 - 1.0 12/01/2013 [facility] IMMUNOLOGY C-REACTIVE PROTEIN 8.6 <=2.9 mg/L 12/01/2013 [facility] Pathology Reports No Data Provided for This Section Diagnostic Reports Report Value Date Source Breast Mammo Scrn MANAV incl CAD MA BILATERAL DIGITAL SCREENING MAMMOGRAM WITH CAD: 11/21/2018 Current study was evaluated with a Computer Aided Detection (CAD) system. COMPARISON:Comparison is made to exams dated: 06/27/2018 mammogram, 12/08/2017 mammogram, 11/27/2017 mammogram, and 11/17/2017 mammogram - [facility]. TECHNIQUE: Mammographic views were obtained using digital acquisition. Slacka Version 1.3 was utilized for computer aided detection. FINDINGS: The tissue of both breasts is heterogeneously dense, which could obscure detection of small masses. There are benign calcifications in both breasts. There also is a biopsy clip in the left breast. No significant masses, calcifications, or other findings are seen in either breast. There has been no significant interval change. IMPRESSION: BENIGN RECOMMENDATION:There is no mammographic evidence of malignancy. A 1 year screening mammogram is recommended.(11/22/2019) This exam was interpreted at [id number] for [facility]. Kamaljit Jordan M.D. ap/penrad:11/22/2018 08:36:21 Supervisor Laboratory Animal Facility(s): [facility]ale Rucker, [facility] letter sent: BI-RADS 1/2 Dense Mammogram BI-RADS: 2 Benign 11/21/2018 [facility] Breast Complete Uni US COMPLETE ULTRASOUND OF LEFT BREAST AND AXILLA: 06/27/2018 CLINICAL: Abnormal mammogram, mammographic nodule/density 6 month postbiopsy follow up. COMPARISON:Comparison is made to exams dated: 06/27/2018 mammogram, 12/08/2017 mammogram, 12/08/2017 ultrasound biopsy, 11/27/2017 ultrasound, 11/17/2017 mammogram, and 11/27/2017 mammogram - [facility]. TECHNIQUE: Color flow and real-time ultrasound of the left breast four quadrants and axilla regions were performed. Olivo scale images of the real-time examination were reviewed. All 4 quadrants, the retroareolar region and axilla are evaluated in this exam. FINDINGS: There is a stable small benign biopsied mass left breast at 2 o'clock that correlates with ultrasound. No abnormalities were seen sonographically in the left axilla. There has been no significant interval change. IMPRESSION: BENIGN There is no suspicious sonographic abnormality seen in the left breast to correspond with the initial mammographic densities which is most consistent with normal fibroglandular tissue. There is no sonographic evidence of malignancy. Return to annual mammogram screening schedule is recommended.(11/17/2018) The results were reviewed with the patient. This exam was interpreted at [id number] for [facility]. Eder Salazar M.D. jt/:06/27/2018 10:13:25 Supervisor Laboratory Animal Facility(s): Willard Caceres [facility] letter sent: BI-RADS 1/2 Ultrasound BI-RADS: 2 Benign 06/27/2018 [facility] Breast Mammo Diag UNI incl CAD MA UNILATERAL LEFT DIGITAL DIAGNOSTIC MAMMOGRAM WITH CAD: 06/27/2018 CLINICAL: Left breast mass benign bx follow up. Current study was evaluated with a Computer Aided Detection (CAD) system. COMPARISON:Comparison is made to exams dated: 11/27/2017 mammogram, 11/17/2017 mammogram, 11/27/2017 ultrasound, and 12/08/2017 ultrasound biopsy - [facility]. TECHNIQUE: Mammographic views were obtained using digital acquisition. Slacka Version 1.3 was utilized for computer aided detection. FINDINGS: The tissue of left breast is heterogeneously dense, which could obscure detection of small masses. Scattered densities are noted in the left breast. There is a biopsy clip in the left breast. No significant masses, calcifications, or other findings are seen in the breast. IMPRESSION: INCOMPLETE: NEEDS ADDITIONAL IMAGING EVALUATION RECOMMENDATION:Scattered densities are noted in the left breast. Further evaluation with ultrasound is recommended. The results were reviewed with the patient. This exam was interpreted at [id number] for [facility]. SUMMARY: Ultrasound will be performed at this time; please see dedicated separate report. Ultrasound will also reevaluate prior biopsy site. Eder colby/penrad:06/27/2018 09:18:26 Supervisor Laboratory Animal Facility(s): Gale Rucker [facility] Mammogram BI-RADS: 0 Indeterminate 06/27/2018 [facility] Mammo Diag UNI incl CAD MA UNILATERAL LEFT DIGITAL DIAGNOSTIC MAMMOGRAM WITH CAD POST-PROCEDURE IMAGING FOR MARKER PLACEMENT: 12/08/2017 CLINICAL: Post biopsy clip confirmation mammogram after ultrasound biopsy. Current study was evaluated with a Computer Aided Detection (CAD) system. COMPARISON:Comparison is made to exams dated: 12/08/2017 ultrasound biopsy, 11/27/2017 ultrasound, 11/27/2017 mammogram, and 11/17/2017 mammogram - [facility]. TECHNIQUE: Mammographic views were obtained using digital acquisition. Slacka Version 1.3 was utilized for computer aided detection. FINDINGS: The tissue of left breast is heterogeneously dense, which could obscure detection of small masses. Post procedure digital mammogram demonstrates the biopsy clip in appropriate position. No other significant interval change. IMPRESSION: POST PROCEDURE MAMMOGRAM FOR MARKER PLACEMENT RECOMMENDATION:Biopsy clip is in appropriate position. Please see biopsy report for further details. Follow up with ACR/SBI guidelines. This exam was interpreted at [id number] for [facility]. Eder colby/penrad:12/08/2017 12:25:25 Supervisor Laboratory Animal Facility(s): Gale Rucker [facility] Mammogram BI-RADS: Post-procedure mammogram for marker placement 12/08/2017 [facility] Breast BX Uni w Clip Primary Side US ULTRASOUND GUIDED BIOPSY LEFT BREAST WITH MARKING DEVICE INSERTED AND POST DIGITAL MAMMOGRAPHIC AND ULTRASOUND IMAGIN12/08/2017 CLINICAL: Left 2 o'clock Breast Mass. PATIENT CONSENT: Oral and written informed consent was obtained. Risks, benefits, and alternatives were discussed with the patient. Risks include but are not limited to pain, infection, bleeding, incomplete procedure, repeat procedure, pneumothorax, damage to surrounding tissues, and allergic reaction. The patient understands the plan and wishes to proceed. A time out was performed immediately prior to the procedure to confirm the patient's identity (name/date of ) and correct procedure site. Correlation is made to exams dated: 11/27/2017 mammogram, 11/27/2017 ultrasound, and 11/17/2017 mammogram - [facility]. An ultrasound guided biopsy using real-time ultrasound was performed for the concerning 9 mm indistinct lobulated mass located in the left breast at 2 o'clock posterior depth 7 cm from the nipple. This was described on the previous ultrasound report. The skin was prepped in the usual manner. 5 ccs of 1% lidocaine was administered during the procedure. A skin cassie was made in the breast. The abnormality was approached from the lateral aspect. A 14 gauge biopsy needle was placed adjacent to the abnormality through an introducer device under ultrasound guidance. Once the needle was documented to be in the correct location, multiple specimens were obtained using an Achieve automated firing device. A Gel Tony UltraCor S shaped clip was inserted into the biopsy cavity. A skin adhesive and a sterile dressing were applied to the access site. Post procedure digital mammographic and ultrasound imaging interpreted on a dedicated mammography workstation demonstrates the clip at the targeted area and partial removal of the abnormality. The specimens were sent to the laboratory for pathological analysis. IMPRESSION: ULTRASOUND GUIDED BIOPSY BENIGN Ultrasound guided biopsy of the 9 mm mass in the left breast at 2 o'clock posterior depth 7 cm from the nipple was successful with no apparent post procedure complications. Pathology indicates benign results - 'Dense fibrous breast tissue with distorted benign duct elements'. Pathology results are concordant with imaging findings. A follow-up left diagnostic mammogram and possible ultrasound in 6 months is recommended to demonstrate stability.(06/09/2018) This exam was interpreted at [id number] for [facility]. Eder colby/:12/12/2017 11:47:17 Supervisor Laboratory Animal Facility(s): Mary Swanson, [facility] letter sent: Post Bx Results 12/08/2017 [facility] Breast Complete Uni US COMPLETE ULTRASOUND OF LEFT BREAST AND AXILLA: 11/27/2017 CLINICAL: /Abnormal Mammo. COMPARISON:Comparison is made to exam dated: 11/27/2017 mammogram - [facility]. TECHNIQUE: Color flow and real-time ultrasound of the left breast four quadrants and axilla regions were performed. Olivo scale images of the real-time examination were reviewed. FINDINGS: There is an 8 mm nodule with an indistinct margin in the left breast at 2 o'clock posterior depth 7 cm from the nipple. This nodule is hypoechoic. This correlates with mammography findings. No abnormalities were seen sonographically in the left axilla. IMPRESSION: SUSPICIOUS OF MALIGNANCY RECOMMENDATION:The 8 mm nodule in the left breast is at an intermediate suspicion for malignancy. An ultrasound guided biopsy is recommended. A phone call was made to Dr. Gar's office on 11/27/17. This exam was interpreted at [id number] for [facility]. Kamaljit Jordan M.D. ap/:11/27/2017 15:39:06 Supervisor Laboratory Animal Facility(s): Mary Swanson, [facility] letter sent: BI-RADS 4/5 Ultrasound BI-RADS: 4b Suspicious abnormality - intermediate suspicion of malignancy 11/27/2017 [facility] Mammo Diag UNI incl CAD MA UNILATERAL LEFT DIGITAL DIAGNOSTIC MAMMOGRAM WITH CAD: 11/27/2017 Current study was evaluated with a Computer Aided Detection (CAD) system. COMPARISON:Comparison is made to exam dated: 11/17/2017 mammogram - [facility]. TECHNIQUE: Mammographic views were obtained using digital acquisition. Slacka Version 1.3 was utilized for computer aided detection. FINDINGS: The tissue of left breast is heterogeneously dense, which could obscure detection of small masses. There is a nodule in the left breast at 2 o'clock posterior depth. This is seen in additional views. No other significant masses or calcifications are seen in the breast. IMPRESSION: INCOMPLETE: NEEDS ADDITIONAL IMAGING EVALUATION RECOMMENDATION:The nodule in the left breast is indeterminate. An ultrasound is recommended. This exam was interpreted at [id number] for [facility]. SUMMARY: Ultrasound will be performed at this time; please see dedicated separate report. Kamaljit Jordan M.D. ap/penrad:11/27/2017 15:04:54 Supervisor Laboratory Animal Facility(s): Gloria Pride, [facility] Mammogram BI-RADS: 0 Indeterminate 11/27/2017 [facility] Breast Mammo Scrn MANAV incl CAD MA BILATERAL DIGITAL SCREENING MAMMOGRAM WITH CAD: 11/17/2017 CLINICAL: Routine screening. Current study was evaluated with a Computer Aided Detection (CAD) system. COMPARISON:Exam is read without the benefit of comparison films. Patient is unsure and/or cannot remember where and/or when her prior exam(s) was performed. TECHNIQUE: Mammographic views were obtained using digital acquisition. Slacka Version 1.3 was utilized for computer aided detection. FINDINGS: The tissue of both breasts is heterogeneously dense, which could obscure detection of small masses. There are benign calcifications in the right breast. There is a mass in the left breast at 12 o'clock posterior depth. There also is a density in the left breast posterior depth central to the nipple seen on the craniocaudal view only. No other significant masses, calcifications, or other findings are seen in either breast. IMPRESSION: INCOMPLETE: NEEDS ADDITIONAL IMAGING EVALUATION The mass in the left breast at 12 o'clock posterior depth is indeterminate. Left diagnostic mammogram with possible ultrasound is recommended (spot compression and lateral views). The density in the left breast posterior depth central to the nipple seen on the craniocaudal view only is indeterminate. Left diagnostic mammogram with possible ultrasound is recommended (spot compression, rolled views, and lateral view). SUMMARY: Prior mammograms would be of added benefit to document manager terminal stability. This aids in establishing benignity. The patient should make additional efforts to locate her prior exams. An addendum will be made if additional films are provided. This exam was interpreted at [id number] for [facility]. Eder Salazar M.D. jt/:11/17/2017 13:20:23 Supervisor Laboratory Animal Facility(s): Sarah Morton, [facility] letter sent: BI-RADS 0 Mammogram BI-RADS: 0 Indeterminate 11/17/2017 [facility] Bone Density Scan Patient Name: YISEL DAVILA : 1950; Age: 67 years y/o Female MR: [id number] Study: Bone Density Scan 11/17/2017 9:54 AM GROUP MANAGING DIRECTOR Clinical Indication: - osteoporosis. COMPARISON: None FINDINGS: The axial lumbar bone mineral density is 91% of the expected age matched bone mass with a T-score -0.8. Axial lumbar average BMD is 0.95 g/cm2. The left femoral neck bone mineral density is 99% of the expected age matched bone mass with a T-score of 0. Left femoral neck BMD is 0.84 g/cm2. The total femoral BMD is 1.13 g/cm2. IMPRESSION: 1. Normal bone mineral density of the lumbar spine. 2. Normal bone mineral density of the left femoral neck. The World Health Organization has established that OSTEOPOROSIS occurs at -2.5 or more standard deviations (SD) below peak bone mass. OSTEOPENIA (low bone mass) occurs at -1.0 standard deviations to -2.5 standard deviations below peak bone mass. SL: [id number] 11/17/2017 [facility] 2 views EXAM: XR CHEST 2 VIEWS. DATE: Nov 30, 20134 hours INDICATION: Chest pain. COMPARISON: none. DISCUSSION: A 1.5 cm nodular density seen within the right mid lung not seen on the lateral radiograph. No airspace opacity, pleural effusion or pneumothorax is seen. The heart size is normal. Tortuous descending aorta. Multilevel bridging syndesmophytes are noted. The osseous structures are unremarkable. IMPRESSION: 1.5 cm right midlung nodular density is concerning for a pulmonary nodule. Nonemergent CT chest is recommended for followup. Finding and recommendation discussed with Dr. Ulloa, resident at 2310 on 11/30/2013 via phone. 11/30/2013 [facility] Humerus AP lateral EXAM: LEFT SHOULDER 3 VIEWS EXAM: LEFT HUMERUS 2 VIEWS DATE: Nov 30, 20138 hours INDICATION: Pain in limb COMPARISON: None available. TECHNIQUE: AP views in internal and external rotation and an axillary view of the left shoulder, AP and lateral radiographs of the left humerus. FINDINGS: No fracture, dislocation or other acute bony abnormality is identified. Calcific tendinopathy is present at the infraspinatus tendon insertion, and minimally at the subscapularis tendon insertion. Mild left acromioclavicular joint degenerative changes are seen. IMPRESSION: 1. No acute abnormality. 2. Left rotator cuff calcific tendinopathy 11/30/2013 [facility] Shoulder series EXAM: LEFT SHOULDER 3 VIEWS EXAM: LEFT HUMERUS 2 VIEWS DATE: Nov 30, 2013 2128 hours INDICATION: Pain in limb COMPARISON: None available. TECHNIQUE: AP views in internal and external rotation and an axillary view of the left shoulder, AP and lateral radiographs of the left humerus. FINDINGS: No fracture, dislocation or other acute bony abnormality is identified. Calcific tendinopathy is present at the infraspinatus tendon insertion, and minimally at the subscapularis tendon insertion. Mild left acromioclavicular joint degenerative changes are seen. IMPRESSION: 1. No acute abnormality. 2. Left rotator cuff calcific tendinopathy 11/30/2013 [facility] Consultation Notes No Data Provided for This Section Discharge Summaries No Data Provided for This Section History and Physicals No Data Provided for This Section Vital Signs Vital Sign Value Date Comments Source Temperature Oral (F) 97.1 F 03/12/2019 [facility] Respitory Rate 16 03/12/2019 [facility] Height 157.48 cm 03/12/2019 [facility] BMI Calculated 32.81 03/12/2019 [facility] Weight 81.364 03/12/2019 [facility] Systolic (mm Hg) 116 03/12/2019 [facility] Diastolic (mm Hg) 57 03/12/2019 [facility] Heart Rate 60 03/12/2019 [facility] Height 160.02 cm 12/10/2018 [facility] Weight 81.818 12/10/2018 [facility] BMI Calculated 31.95 12/10/2018 [facility] Respitory Rate 16 12/10/2018 [facility] Heart Rate 65 12/10/2018 [facility] Temperature Oral (F) 96.9 F 12/10/2018 [facility] Systolic (mm Hg) 137 12/10/2018 [facility] Diastolic (mm Hg) 70 12/10/2018 [facility] Heart Rate 66 11/12/2018 [facility] BMI Calculated 31.33 11/12/2018 [facility] Respitory Rate 16 11/12/2018 [facility] Temperature Oral (F) 97.1 F 11/12/2018 [facility] Height 160.02 cm 11/12/2018 [facility] Weight 80.227 11/12/2018 [facility] Systolic (mm Hg) 176 11/12/2018 [facility] Diastolic (mm Hg) 73 11/12/2018 [facility] Height 160.02 cm 07/31/2018 [facility] Heart Rate 67 07/31/2018 [facility] Respitory Rate 16 07/31/2018 [facility] Temperature Oral (F) 96.5 F 07/31/2018 [facility] Weight 76.932 07/31/2018 [facility] BMI Calculated 30.04 07/31/2018 [facility] Systolic (mm Hg) 161 07/31/2018 [facility] Diastolic (mm Hg) 71 07/31/2018 [facility] Systolic (mm Hg) 165 06/19/2018 [facility] Diastolic (mm Hg) 85 06/19/2018 [facility] Weight 79.091 06/19/2018 [facility] BMI Calculated 30.89 06/19/2018 [facility] Height 160.02 cm 06/19/2018 [facility] Respitory Rate 16 06/19/2018 [facility] Temperature Oral (F) 97.1 F 06/19/2018 [facility] Heart Rate 67 06/19/2018 [facility] Systolic (mm Hg) 186 06/19/2018 [facility] Diastolic (mm Hg) 80 06/19/2018 [facility] Temperature Oral (F) 98.0 F 04/02/2018 [facility] Respitory Rate 18 04/02/2018 [facility] Systolic (mm Hg) 135 04/02/2018 [facility] Diastolic (mm Hg) 50 04/02/2018 [facility] Heart Rate 70 04/02/2018 [facility] Temperature Oral (F) 98.0 F 04/02/2018 [facility] Respitory Rate 18 04/02/2018 [facility] Heart Rate 82 04/02/2018 [facility] Systolic (mm Hg) 156 04/02/2018 [facility] Diastolic (mm Hg) 63 04/02/2018 [facility] Weight 79.545 04/02/2018 [facility] BMI Calculated 27.47 04/02/2018 [facility] Height 170.18 cm 04/02/2018 [facility] Systolic (mm Hg) 145 03/28/2018 [facility] Diastolic (mm Hg) 65 03/28/2018 [facility] Height 165.1 cm 03/28/2018 [facility] BMI Calculated 29.18 03/28/2018 [facility] Weight 79.545 03/28/2018 [facility] Heart Rate 76 03/28/2018 [facility] Temperature Oral (F) 97.4 F 03/28/2018 [facility] Respitory Rate 16 03/28/2018 [facility] Systolic (mm Hg) 151 03/28/2018 [facility] Diastolic (mm Hg) 74 03/28/2018 [facility] Systolic (mm Hg) 142 12/13/2017 [facility] Diastolic (mm Hg) 65 12/13/2017 [facility] BMI Calculated 31.44 12/13/2017 [facility] Weight 80.511 12/13/2017 [facility] Height 160.02 cm 12/13/2017 [facility] Respitory Rate 16 12/13/2017 [facility] Heart Rate 69 12/13/2017 [facility] Temperature Oral (F) 98.0 F 12/13/2017 [facility] Systolic (mm Hg) 159 12/13/2017 [facility] Diastolic (mm Hg) 74 12/13/2017 [facility] Temperature Oral (F) 96.6 F 11/09/2017 [facility] Respitory Rate 16 11/09/2017 [facility] Height 160.02 cm 11/09/2017 [facility] BMI Calculated 32.84 11/09/2017 [facility] Weight 84.091 11/09/2017 [facility] Heart Rate 68 11/09/2017 [facility] Systolic (mm Hg) 172 11/09/2017 [facility] Diastolic (mm Hg) 78 11/09/2017 [facility] BMI Calculated 31.95 08/08/2017 [facility] Height 160.02 cm 08/08/2017 [facility] Temperature Oral (F) 97.4 F 08/08/2017 [facility] Heart Rate 81 08/08/2017 [facility] Respitory Rate 16 08/08/2017 [facility] Systolic (mm Hg) 156 08/08/2017 [facility] Diastolic (mm Hg) 77 08/08/2017 [facility] Weight 81.818 08/08/2017 [facility] Diastolic (mm Hg) 80 12/01/2013 [facility] Systolic (mm Hg) 165 12/01/2013 [facility] Heart Rate 74 12/01/2013 [facility] Temperature Oral (F) 99.1 F 12/01/2013 [facility] Respitory Rate 18 12/01/2013 [facility] Weight 81.818 12/01/2013 [facility] BMI Calculated 30.02 12/01/2013 [facility] Height 165.1 cm 12/01/2013 [facility] Diastolic (mm Hg) 82 12/01/2013 [facility] Systolic (mm Hg) 199 12/01/2013 [facility] Temperature Oral (F) 98.1 F 12/01/2013 [facility] Respitory Rate 18 12/01/2013 [facility] Heart Rate 86 12/01/2013 [facility] Encounters Location Location Details Encounter Type Encounter Number Reason For Visit Attending Provider ADM Date DC Date Status Source [facility] [id number] Ovi Gann 12/01/2013 12/01/2013 [facility] Outpatient [id number] KAYLA GAR 05/03/2016 Active [facility] Outpatient [id number] KAYLA GAR 09/01/2016 Active [facility] Outpatient [id number] KAYLA GAR 12/12/2016 Active [facility] Outpatient [id number] KAYLA GAR 04/12/2017 Active [facility] Outpatient [id number] KAYLA GAR 08/08/2017 Active [facility] Primary Care [facility] Outpatient [id number] Kayla Gar 08/08/2017 08/09/2017 [facility] Primary Care [facility] Phone Message [id number] 08/27/2017 08/29/2017 [facility] Outpatient [id number] KAYLA GAR 11/09/2017 Active [facility] Primary Care [facility] Outpatient [id number] Kayla Gar 11/09/2017 11/10/2017 [facility] Outpatient [id number] Kayla Gar 11/17/2017 11/18/2017 [facility] Outpatient [id number] Kayla Gar 11/27/2017 11/28/2017 [facility] Outpatient [id number] Kayla Gar 12/08/2017 12/09/2017 [facility] Outpatient [id number] KAYLA GAR 12/13/2017 Active [facility] Primary Care [facility] Outpatient [id number] Kayla Gar 12/13/2017 12/14/2017 [facility] Outpatient [id number] KAYLA GAR 03/28/2018 Active [facility] Primary Care [facility] Outpatient [id number] Kayla Gar 03/28/2018 03/29/2018 [facility] Emergency [id number] Darya Hurdsuf 04/02/2018 04/02/2018 [facility] Primary Care [facility] Phone Message [id number] 04/03/2018 04/05/2018 [facility] Phone Message [id number] 04/09/2018 04/11/2018 [facility] Outpatient [id number] KAYLA CONG 06/19/2018 Active [facility] Outpatient [id number] Kayla Cong 06/19/2018 06/20/2018 [facility] Outpatient [id number] Kayla Cong 06/27/2018 06/28/2018 [facility] Outpatient [id number] KAYLA CONG 07/31/2018 Active [facility] Outpatient [id number] Kayla Cong 07/31/2018 08/01/2018 [facility] Phone Message [id number] 10/02/2018 10/04/2018 Medical [facility] Outpatient [id number] KAYLA CONG 11/12/2018 Active [facility] Outpatient [id number] Kayla Gar 11/12/2018 11/13/2018 [facility] Outpatient [id number] Kayla Cong 11/21/2018 11/22/2018 [facility] Outpatient [id number] Kayla Cong 12/10/2018 Active [facility] Outpatient [id number] Kayla Cong 12/10/2018 12/11/2018 Medical [facility] Outpatient [id number] Kayla Cong 03/12/2019 Active [facility] Outpatient [id number] Kayla Gar 03/12/2019 03/13/2019 [facility] Phone Message [id number] 03/28/2019 03/30/2019 [facility] Procedures Procedure Code Date Perfomer Comments Source Diabetic Retinopathy Study 7 field stereoscopic fundus photography<sup>1, 2, 3</sup> [id number] 02/22/[address] Deirdre Nova [facility] Mammogram<sup>1, 2, 3, 4</sup> [id number] 11/21/2018 Return to annual mammogram screening schedule is recommended.(11/17/2018)There is no mammographic evidence of malignancy. A 1 year screening mammogram is recommended.(11/22/2019)Left breast mass, needs further test.Pathology "Dense fibrous breast tissue with distorted benign duct elements" A follow-up left diagnostic mammogram and ultrasound in 6 months is recommended (06/09/2018) [facility] Mammogram<sup>4, 5, 6, 7</sup> [id number] 11/21/2018 Return to annual mammogram screening schedule is recommended.(11/17/2018)There is no mammographic evidence of malignancy. A 1 year screening mammogram is recommended.(11/22/2019)Left breast mass, needs further test.Pathology "Dense fibrous breast tissue with distorted benign duct elements" A follow-up left diagnostic mammogram and ultrasound in 6 months is recommended (06/09/2018) [facility] Diabetic Retinopathy Study 7 field stereoscopic fundus photography<sup>1, 2</sup> [id number] 09/03/[address] Tong [facility] Diabetic Retinopathy [facility] 7 field stereoscopic fundus photography<sup>5, 6</sup> [id number] 09/03/[address] Tong [facility] Bone density scan<sup>3</sup> [id number] 11/17/2017 1. Normal bone mineral density of the lumbar spine. 2. Normal bone mineral density of the left femoral neck. [facility] Mammogram<sup>4, 5, 6</sup> [id number] 11/17/2017 Return to annual mammogram screening schedule is recommended.(11/17/2018)Left breast mass, needs further test.Pathology "Dense fibrous breast tissue with distorted benign duct elements" A follow-up left diagnostic mammogram and ultrasound in 6 months is recommended (06/09/2018) [facility] Bone density scan<sup>7</sup> [id number] 11/17/2017 1. Normal bone mineral density of the lumbar spine. 2. Normal bone mineral density of the left femoral neck. [facility] Bone density scan<sup>1</sup> [id number] 11/17/2017 1. Normal bone mineral density of the lumbar spine. 2. Normal bone mineral density of the left femoral neck. [facility] Mammogram<sup>2, 3</sup> [id number] 11/17/2017 Left breast mass, needs further test.Pathology "Dense fibrous breast tissue with distorted benign duct elements" A follow-up left diagnostic mammogram and ultrasound in 6 months is recommended (06/09/2018) [facility] Bone density scan<sup>8</sup> [id number] 11/17/2017 1. Normal bone mineral density of the lumbar spine. 2. Normal bone mineral density of the left femoral neck. [facility] Removal impacted cerumen using irrigation/lavage, unilateral [id number] 11/09/2017 [facility] Diabetic Retinopathy Study 7 field stereoscopic fundus photography<sup>4</sup> [id number] 10/24/2017 Dr Nova [facility] Examination of eye<sup>1</sup> [id number] 05/02/2017 Dr Nova [facility] Colonoscopy<sup>2</sup> [id number] 04/13/2017 Mild diverticulosis, IH Next one in [address] De La Cruz [facility] Endoscopy<sup>3</sup> [id number] 04/13/2017 Gastritis, Reflux esophagitis Dr De La Cruz [facility] Colonoscopy<sup>7</sup> [id number] 04/13/2017 Mild diverticulosis, IH Next one in [address] De La Cruz [facility] Endoscopy<sup>8</sup> [id number] 04/13/2017 Gastritis, Reflux esophagitis Dr De La Cruz [facility] Colonoscopy<sup>8</sup> [id number] 04/13/2017 Mild diverticulosis, IH Next one in [address] De La Cruz [facility] Endoscopy<sup>9</sup> [id number] 04/13/2017 Gastritis, Reflux esophagitis Dr De La Cruz [facility] Colonoscopy<sup>5</sup> [id number] 04/13/2017 Mild diverticulosis, IH Next one in [address] De La Cruz [facility] Endoscopy<sup>6</sup> [id number] 04/13/2017 Gastritis, Reflux esophagitis Dr De La Cruz [facility] Colonoscopy<sup>9</sup> [id number] 04/13/2017 Mild diverticulosis, IH Next one in [address] De La Cruz [facility] Endoscopy<sup>10</sup> [id number] 04/13/2017 Gastritis, Reflux esophagitis Dr De La Cruz [facility] Eye examination<sup>4</sup> [id number] 05/13/2016 Dr.Larry [facility] Tubal ligation [id number] [facility] Assessment and Plan No Data Provided for This Section Plan of Care No Data Provided for This Section Social History Social History Date Source Social History TypeResponse Substance Abuse Use: None. Alcohol Never Smoking Status Never smoker; Exposure to Tobacco Smoke None; Cigarette Smoking Last 365 Days No; Reg Smoking Cessation Counseling No entered on: 03/12/19 04/02/2018 [facility] Social History TypeResponse Substance Abuse Use: None. Alcohol Never Smoking Status Never smoker; Exposure to Tobacco Smoke None; Cigarette Smoking Last 365 Days No; Reg Smoking Cessation Counseling No entered on: 12/10/18 04/02/2018 [facility] Social History TypeResponse Substance Abuse Use: None. Alcohol Never Smoking Status Never smoker; Exposure to Tobacco Smoke None; Cigarette Smoking Last 365 Days No; Reg Smoking Cessation Counseling No entered on: 07/31/18 04/02/2018 [facility] Social History TypeResponse Smoking Status Use: Never smoker. Tobacco smoke exposure: None. Did the Patient Smoke Cigarettes Anytime During the Last 365 Days? No. Cessation Counseling Provided? No. 12/01/2013 [facility] Family History No Data Provided for This Section Advance Directives No Data Provided for This Section Functional Status No Data Provided for This Section
--- OUTSIDE RECORDS SUMMARY | 2019-05-10 07:05 | XMS REPORT | Summary of Care ---
Author Author [facility] Organization [facility] Address Unknown Phone Unavailable Encounter HQ Emerson(FIN) [id number] Date(s): 03/28/18 - 03/28/18 [facility] [address], [address] [place] [address]- [phone] Discharge Disposition: Home or Self Care Attending Physician: Pamela Gibbons MD Vital Signs Most recent to 1 2 oldest [Reference Range]: Height 165.1 cm (03/28/18 8:21 AM) Temperature Oral 97.4 DegF [96.4-99.1 DegF] (03/28/18 8:21 AM) Blood Pressure 145/65 mmHg 151/74 mmHg [90-140/60-90 mmHg] *HI* *HI* (03/28/18 9:13 AM) (03/28/18 8:21 AM) Respiratory Rate 16 BRMIN [14-20 BRMIN] (03/28/18 8:21 AM) Peripheral Pulse 76 bpm Rate [60-100 bpm] (03/28/18 8:21 AM) Weight 79.545 kg (03/28/18 8:21 AM) Body Mass Index 29.18 m2 (03/28/18 8:21 AM) Problem List Condition Effective Dates Status [...] PO, Daily, # 90 tab, 1 Refill(s) Start Date: 03/28/18 Status: Ordered Aspirin Enteric Coated 81 mg oral delayed release tablet See Instructions, TAKE 1 TABLET BY MOUTH DAILY, # 100 tab, 1 Refill(s) Start Date: 03/28/18 Status: Ordered atorvastatin 10 mg oral tablet 10 mg=1 tab, PO, Bedtime, # 90 tab, 1 Refill(s) Start Date: 03/28/18 Status: Ordered furosemide 20 mg oral tablet See Instructions, 1 tab PO in AM take half tab in PM, # 135 tab, 1 Refill(s) Start Date: 03/28/18 Status: Ordered lisinopril 40 mg oral tablet 40 mg=1 tab, PO, BID, # 180 tab, 1 Refill(s) Start Date: 03/28/18 Stop Date: 09/24/18 Status: Ordered metFORMIN 500 mg oral tablet 1,000 mg=2 tab, PO, BID, X 90 day, # 360 tab, 1 Refill(s) Start Date: 03/28/18 Stop Date: 09/24/18 Status: Ordered pantoprazole 20 mg oral enteric coated tablet See Instructions, TAKE 1 TABLET BY MOUTH DAILY, # 90 tab, 1 Refill(s) Start Date: 03/28/18 Status: Ordered Toprol-XL 50 mg oral tablet, extended release 50 mg=1 tab, PO, BID, # 180 tab, 1 Refill(s) Start Date: 03/28/18 Stop Date: 09/24/18 Status: Ordered Results No data available for [...] Cruz Social History Social History Type Response Alcohol Never Smoking Status Never smoker; Exposure to Tobacco Smoke None; Cigarette Smoking Last 365 Days No; Reg Smoking Cessation Counseling No entered on: 03/28/18 Assessment and Plan No data available for this section
--- OUTSIDE RECORDS SUMMARY | 2019-05-10 07:05 | XMS REPORT | Summary of Care ---
Author Author [facility] Organization [facility] Address Unknown Phone Unavailable Encounter HQ [facility](FIN) [id number] Date(s): 11/27/17 - 11/27/17 [facility] [address] [place] [address]- [phone] Encounter Diagnosis Other abnormal and inconclusive findings on diagnostic imaging of breast (Final) - 12/01/17 Unspecified lump in the left breast, upper outer quadrant (Final) - Discharge Disposition: Home or Self [...] Reg Smoking Cessation Counseling No entered on: 12/13/17 Assessment and Plan No data available for this section
--- OUTSIDE RECORDS SUMMARY | 2019-05-10 07:05 | XMS REPORT | Summary of Care ---
Author Author [facility] Care [facility] Organization [facility] Address Unknown Phone Unavailable Encounter HQ Jose_gerardo(FIN) [id number] Date(s): 10/02/18 - 10/03/18 [facility] [address] [address]- Vital Signs No data available for this section Problem List Condition Effective Dates Status Health Status Informant Diabetes Resolved mellitus(Confirmed) Hypertension, Active essential(Confirmed) GERD Active (gastroesophageal reflux disease)(Confirmed) Hypertension(Confirm Resolved ed) Mixed Active hyperlipidemia(Confi rmed) Obesity(Confirmed) Active Type 2 diabetes Active mellitus with hyperglycemia(Confir med) Allergies, Adverse Reactions, Alerts No Known Medication Allergies Medications Metoprolol Succinate ER 50 mg oral tablet, extended release =1 tab, PO, BID, # 180 tab, Refill(s) 1, [id number] Start Date: 11/09/18 Stop Date: 11/12/18 Status: Discontinued pantoprazole 20 mg oral enteric coated tablet See Instructions, TAKE 1 TABLET BY MOUTH DAILY, # 90 tab, 1 Refill(s), [id number] Start Date: 10/02/18 Stop Date: 03/12/19 Status: Discontinued Results No data available for this section Immunizations Given and Recorded Vaccine Date Status Refusal Reason influenza virus vaccine, inactivated1 05/19/18 Recorded influenza virus vaccine, inactivated2 08/08/17 Given influenza virus vaccine, inactivated 08/18/16 Recorded pneumococcal 13-valent vaccine3 11/09/17 Given pneumococcal 23-valent vaccine 07/19/15 Recorded 1Result Comment: [06/19/2018] @[facility] 2Result Comment: Patient waited in room ten mins no allergic reaction. 3Result Comment: Patient waited in room ten mins no allergic reaction. Procedures Procedure Date Related Diagnosis Body Site Status Diabetic Retinopathy Study 7 field 02/22/19 Completed stereoscopic fundus photography1, 2, 3 Mammogram4, 5, 6, 7 11/21/18 Completed Bone density scan8 11/17/17 Completed Colonoscopy9 04/13/17 Completed [id number] 04/13/17 Completed Tubal ligation Completed 1No DR. [...] Smoking Cessation Counseling No entered on: 03/12/19 Assessment and Plan No data available for this section
--- OUTSIDE RECORDS SUMMARY | 2019-05-10 07:05 | XMS REPORT | Summary of Care ---
Author Author [facility] Organization [facility] Address Unknown Phone Unavailable Encounter HQ Jose_gerardo(FIN) [id number] Date(s): 04/09/18 - 04/10/18 [facility] [address], [address] [place] [address]- [phone] Vital Signs No data available for this [...]
--- OUTSIDE RECORDS SUMMARY | 2019-05-10 07:05 | XMS REPORT | Summary of Care ---
Author Author [facility] Organization [facility] Address Unknown Phone Unavailable Encounter HQ [facility](FIN) [id number] Date(s): 07/31/18 - 07/31/18 [facility] [address] [address]- Discharge Disposition: Home or Self Care Attending Physician: Pamela Gibbons MD Vital Signs Most recent to 1 oldest [Reference Range]: Height 160.02 cm (07/31/18 7:45 AM) Temperature Oral 96.5 DegF [96.4-99.1 DegF] (07/31/18 7:45 AM) Blood Pressure 161/71 mmHg [90-140/60-90 mmHg] *HI* (07/31/18 7:45 AM) Respiratory Rate 16 BRMIN [14-20 BRMIN] (07/31/18 7:45 AM) Peripheral Pulse 67 bpm Rate [60-100 bpm] (07/31/18 7:45 AM) Weight 76.932 kg (07/31/18 7:45 AM) Body Mass Index 30.04 m2 (07/31/18 7:45 AM) Problem List Condition Effective Dates Status Health Status Informant Diabetes Resolved mellitus(Confirmed) Hypertension, Active essential(Confirmed) GERD Active (gastroesophageal reflux disease)(Confirmed) Hypertension(Confirm Resolved ed) Abnormal mammogram Active of left breast(Confirmed) Mixed Active hyperlipidemia(Confi rmed) Obesity(Confirmed) Active Diabetes mellitus Active type 2, controlled(Confirmed ) Allergies, Adverse Reactions, Alerts No Known Medication Allergies Medications ciprofloxacin 500 mg oral tablet 500 mg=1 tab, PO, Q12H, X 10 day, # 20 tab, 0 Refill(s), [facility]acy: [id number] Start Date: 07/31/18 Stop Date: 08/10/18 Status: Completed ONE TOUCH ULTRA BLUE TEST STRP See Instructions, # 100 strip, Refill(s) 12, USE DIRECTED EVERY DAY, Pharmacy : [facility] #[id number] Start Date: 09/14/18 Status: Ordered Results No data available for this section Immunizations Given and Recorded Vaccine Date Status Refusal Reason influenza virus vaccine, inactivated1 05/19/18 Recorded influenza virus vaccine, inactivated2 08/08/17 Given influenza virus vaccine, inactivated 08/18/16 Recorded pneumococcal 13-valent vaccine3 11/09/17 Given pneumococcal 23-valent vaccine 07/19/15 Recorded 1Result Comment: [06/19/2018] @[facility] 2Result Comment: Patient waited in room ten mins no allergic reaction. 3Result Comment: Patient waited in room ten mins no allergic reaction. Procedures Procedure Date Related Diagnosis Body Site Status Diabetic Retinopathy Study 7 field 12/03/18 Completed stereoscopic fundus photography1, 2, 3 Mammogram4, 5, 6, 7 11/21/18 Completed Bone density scan8 11/17/17 Completed Colonoscopy9 04/13/17 Completed [id number] 04/13/17 Completed Tubal ligation Completed 1No DR. [...]
--- OUTSIDE RECORDS SUMMARY | 2019-05-10 07:05 | XMS REPORT | Summary of Care ---
Author Author [facility] Organization [facility] Address Unknown Phone Unavailable Encounter HQ [facility](FIN) [id number] Date(s): 12/08/17 - 12/08/17 [facility] [address] [place] [address]- [phone] Encounter Diagnosis Other abnormal and inconclusive findings on diagnostic imaging of breast (Final) - 12/14/17 Unspecified lump in the left breast, unspecified quadrant (Final) - Discharge Disposition: Home or [...] Cruz 6Gastritis, Reflux esophagitis Dr De La rCuz Social History Social History Type Response Alcohol Never Smoking Status Never smoker; Exposure to Tobacco Smoke None; Cigarette Smoking Last 365 Days No; Reg Smoking Cessation Counseling No entered on: 12/13/17 Assessment and Plan No data available for this section
--- OUTSIDE RECORDS SUMMARY | 2019-05-10 07:05 | XMS REPORT | Summary of Care ---
Author Author [facility] Organization [facility] Address Unknown Phone Unavailable Encounter HQ Emerson(FIN) [id number] Date(s): 11/12/18 - 11/12/18 [facility] [address], [address] [place], [place] [address]- [phone] Discharge Disposition: Home or Self Care Attending Physician: Pamela Gibbons MD Vital Signs Most recent to 1 oldest [Reference Range]: Height 160.02 cm (11/12/18 7:36 AM) Temperature Oral 97.1 DegF [96.4-99.1 DegF] (11/12/18 7:36 AM) Blood Pressure 176/73 mmHg [90-140/60-90 mmHg] *HI* (11/12/18 7:36 AM) Respiratory Rate 16 BRMIN [14-20 BRMIN] (11/12/18 7:36 AM) Peripheral Pulse 66 bpm Rate [60-100 bpm] (11/12/18 7:36 AM) Weight 80.227 kg (11/12/18 7:36 AM) Body Mass Index 31.33 m2 (11/12/18 7:36 AM) Problem List Condition Effective Dates Status Health Status Informant Diabetes Resolved mellitus(Confirmed) Hypertension, Active essential(Confirmed) GERD Active (gastroesophageal reflux disease)(Confirmed) Hyperlipidemia(Confi Active rmed) Hypertension(Confirm Resolved ed) Abnormal mammogram Active of left breast(Confirmed) Obesity(Confirmed) Active Diabetes mellitus Active type 2, controlled(Confirmed ) Allergies, Adverse Reactions, Alerts Substance Reaction Severity Status NKDA Active Medications atorvastatin 10 mg oral tablet =1 tab, PO, Bedtime, # 90 tab, [id number] Start Date: 09/22/18 Status: Ordered carvedilol 12.5 mg oral tablet See Instructions, 2 tab PO AM and 1 tab pm, # 45 tab, 1 Refill(s), [id number] Start Date: 11/12/18 Status: Ordered Results No data available for this section Immunizations Given and Recorded Vaccine Date Status Refusal Reason influenza virus vaccine, inactivated1 05/19/18 Recorded influenza virus vaccine, inactivated2 08/08/17 Given influenza virus vaccine, inactivated 08/18/16 Recorded pneumococcal 13-valent vaccine3 11/09/17 Given pneumococcal 23-valent vaccine 07/19/15 Recorded 1Result Comment: [06/19/2018] @[facility] 2Result Comment: Patient waited in room ten mins no allergic reaction. 3Result Comment: Patient waited in room ten mins no allergic reaction. Procedures Procedure Date Related Diagnosis Body Site Status Diabetic Retinopathy Study 7 field 09/03/18 Completed stereoscopic fundus photography1, 2 Bone density scan3 11/17/17 Completed Mammogram4, 5, 6 11/17/17 Completed Colonoscopy7 04/13/17 Completed Endoscopy8 04/13/17 Completed Tubal ligation Completed 1No DR. Dr Nova 2Dr Avtar 31. Normal bone mineral density of the lumbar spine. 2. Normal bone mineral density of the left femoral neck. 4Return to annual mammogram screening schedule is recommended.(11/17/2018) 5Left breast mass, needs further test. 6Pathology "Dense fibrous breast tissue with distorted benign duct elements" A follow-up left diagnostic mammogram and ultrasound in 6 months is recommended (06/09/2018) 7Mild diverticulosis, IH Next one in [address] De La Cruz 8Gastritis, Reflux esophagitis Dr De La Cruz Social History Social History Type Response Substance Abuse Use: None. Alcohol Never Smoking Status Never smoker; Exposure to Tobacco Smoke None; Cigarette Smoking Last 365 Days No; Reg Smoking Cessation Counseling No entered on: 11/12/18 Assessment and Plan No data available for this section
--- OUTSIDE RECORDS SUMMARY | 2019-05-10 07:05 | XMS REPORT | Summary of Care ---
Author Author [facility] Organization [facility] Address Unknown Phone Unavailable Encounter HQ Margotr_gerardo(FIN) [id number] Date(s): 12/10/18 - 12/10/18 [facility] [address] [address]- Discharge Disposition: Home or Self Care Attending Physician: Pamela Gibbons MD Vital Signs Most recent to 1 oldest [Reference Range]: Height 160.02 cm (12/10/18 1:31 PM) Temperature Oral 96.9 DegF [96.4-99.1 DegF] (12/10/18 1:31 PM) Blood Pressure 137/70 mmHg [90-140/60-90 mmHg] (12/10/18 1:31 PM) Respiratory Rate 16 BRMIN [14-20 BRMIN] (12/10/18 1:31 PM) Peripheral Pulse 65 bpm Rate [60-100 bpm] (12/10/18 1:31 PM) Weight 81.818 kg (12/10/18 1:31 PM) Body Mass Index 31.95 m2 (12/10/18 1:31 PM) Problem List Condition Effective Dates Status Health Status Informant Diabetes Resolved mellitus(Confirmed) Hypertension, Active essential(Confirmed) GERD Active (gastroesophageal reflux disease)(Confirmed) Hypertension(Confirm Resolved ed) Abnormal mammogram Active of left breast(Confirmed) Mixed Active hyperlipidemia(Confi rmed) Obesity(Confirmed) Active Diabetes mellitus Active type 2, controlled(Confirmed ) Allergies, Adverse Reactions, Alerts Substance Reaction Severity Status NKDA Active Medications carvedilol 12.5 mg oral tablet See Instructions, TOME 2 TABLETAS POR VIA ORAL EN LA MANANA Y 1 TABLETA EN LA NO MIHAELA, # 135 tab, 1 Refill(s), Pharmacy: [facility] #[id number] Start Date: 3/25/19 Status: Ordered Results No data available for this section Immunizations Given and Recorded Vaccine Date Status Refusal Reason influenza virus vaccine, inactivated1 05/19/18 Recorded influenza virus vaccine, inactivated2 08/08/17 Given influenza virus vaccine, inactivated 08/18/16 Recorded pneumococcal 13-valent vaccine3 11/09/17 Given pneumococcal 23-valent vaccine 07/19/15 Recorded 1Result Comment: [06/19/2018] @[facility] 2Result Comment: Patient waited in room ten mins no allergic reaction. 3Result Comment: Patient waited in room ten mins no allergic reaction. Procedures Procedure Date Related Diagnosis Body Site Status Diabetic Retinopathy Study 7 field 12/03/18 Completed stereoscopic fundus photography1, 2, 3 Mammogram4, 5, 6, 7 11/21/18 Completed Bone density scan8 11/17/17 Completed Colonoscopy9 04/13/17 Completed [id number] 04/13/17 Completed Tubal ligation Completed 1No DR. [...]
--- OUTSIDE RECORDS SUMMARY | 2019-05-10 07:05 | XMS REPORT | Summary of Care ---
Author Author [facility] Organization [facility] Address Unknown Phone Unavailable Encounter HQ [facility](FIN) [id number] Date(s): 12/13/17 - 12/13/17 [facility] [address], [address] [place] [address] [phone] Discharge Disposition: Home or Self Care Attending Physician: Pamela Gibbons MD Vital Signs Most recent to 1 2 oldest [Reference Range]: Height 160.02 cm (12/13/17 7:40 AM) Temperature Oral 98.0 DegF [96.4-99.1 DegF] (12/13/17 7:40 AM) Blood Pressure 142/65 mmHg 159/74 mmHg [90-140/60-90 mmHg] *HI* *HI* (12/13/17 7:56 AM) (12/13/17 7:40 AM) Respiratory Rate 16 BRMIN [14-20 BRMIN] (12/13/17 7:40 AM) Peripheral Pulse 69 bpm Rate [60-100 bpm] (12/13/17 7:40 AM) Weight 80.511 kg (12/13/17 7:40 AM) Body Mass Index 31.44 m2 (12/13/17 7:40 AM) Problem List Condition Effective Dates Status Health Status Informant Diabetes Resolved mellitus(Confirmed) Hypertension, Active essential(Confirmed) GERD Active (gastroesophageal reflux disease)(Confirmed) Hyperlipidemia(Confi Active rmed) Hypertension(Confirm Resolved ed) Abnormal mammogram Active of left breast(Confirmed) Obesity(Confirmed) Active Diabetes mellitus Active type 2, controlled(Confirmed ) Allergies, Adverse Reactions, Alerts Substance Reaction Severity Status NKDA Active Medications No Known Medications Results No data available for this section [...]
--- OUTSIDE RECORDS SUMMARY | 2019-05-10 07:05 | XMS REPORT | Summary of Care ---
Author Author [facility] Organization [facility] Address Unknown Phone Unavailable Encounter HQ Emerson(FIN) [id number] Date(s): 06/27/18 - 06/27/18 [facility] [address] [place] [address]- Encounter Diagnosis Unspecified lump in the left breast, unspecified quadrant (Final) - 07/02/18 Other abnormal and inconclusive findings on diagnostic imaging of breast (Final) - Discharge Disposition: Home [...] Reactions, Alerts No Known Medication Allergies Medications No data available for this section Results No data available for this section Immunizations Given and Recorded Vaccine Date Status Refusal Reason influenza virus vaccine, inactivated1 05/19/18 Recorded influenza virus vaccine, inactivated2 08/08/17 Given influenza virus vaccine, inactivated 08/18/16 Recorded pneumococcal 13-valent vaccine3 11/09/17 Given pneumococcal 23-valent vaccine 07/19/15 Recorded 1Result Comment: [06/19/2018] @[facility] 2Result Comment: Patient waited in room ten mins no allergic reaction. 3Result Comment: Patient waited in room ten mins no allergic reaction. Procedures Procedure Date Related Diagnosis Body Site Status Diabetic Retinopathy Study 7 field 12/03/18 Completed stereoscopic fundus photography1, 2, 3 Mammogram4, 5, 6, 7 3/6/19 Completed Bone density scan8 11/17/17 Completed Colonoscopy9 04/13/17 Completed [id number] 04/13/17 Completed Tubal ligation Completed 1No DR. [...]
--- OUTSIDE RECORDS SUMMARY | 2019-05-10 07:05 | XMS REPORT | Summary of Care ---
Author Author [facility] Organization [facility] Address Unknown Phone Unavailable Encounter HQ Emerson(FIN) [id number] Date(s): 11/09/17 - 11/09/17 [facility] [address], [address] [place] [address]- [phone] Discharge Disposition: Home or Self Care Attending Physician: Pamela Gibbons MD Vital Signs Most recent to 1 oldest [Reference Range]: Height 160.02 cm (11/09/17 9:34 AM) Temperature Oral 96.6 DegF [96.4-99.1 DegF] (11/09/17 9:34 AM) Blood Pressure 172/78 mmHg [90-140/60-90 mmHg] *HI* (11/09/17 9:34 AM) Respiratory Rate 16 BRMIN [14-20 BRMIN] (11/09/17 9:34 AM) Peripheral Pulse 68 bpm Rate [60-100 bpm] (11/09/17 9:34 AM) Weight 84.091 kg (11/09/17 9:34 AM) Body Mass Index 32.84 m2 (11/09/17 9:34 AM) Problem List Condition Effective Dates Status [...] Daily, # 90 tab, 1 Refill(s), Pharmacy: [facility]/pharmacy #[id number] Start Date: 11/09/17 Status: Ordered atorvastatin 10 mg oral tablet 10 mg=1 tab, PO, Bedtime, # 90 tab, 1 Refill(s), [id number] Start Date: 11/09/17 Status: Ordered furosemide 20 mg oral tablet 20 mg=1 tab, PO, Daily, # 90 tab, 1 Refill(s), [id number] Start Date: 11/09/17 Stop Date: 11/09/17 Status: Discontinued furosemide 20 mg oral tablet See Instructions, 1 tab PO in AM take half tab in PM, # 135 tab, 1 Refill(s), [id number] Start Date: 11/09/17 Status: Ordered lisinopril 40 mg oral tablet 40 mg=1 tab, PO, BID, # 180 tab, 1 Refill(s), [id number] Start Date: 11/09/17 Stop Date: 05/08/18 Status: Ordered metFORMIN 500 mg oral tablet 1,000 mg=2 tab, PO, BID, X 90 day, # 360 tab, 1 Refill(s), Pharmacy: [facility] #[id number] Start Date: 11/09/17 Stop Date: 05/08/18 Status: Ordered pantoprazole 20 mg oral enteric coated tablet See Instructions, TAKE 1 TABLET BY MOUTH DAILY, # 90 tab, 1 Refill(s), [id number] Start Date: 11/09/17 Status: Ordered Toprol-XL 50 mg oral tablet, extended release 50 mg=1 tab, PO, BID, # 180 tab, 1 Refill(s), [id number] Start Date: 11/09/17 Stop Date: 05/08/18 Status: Ordered trazodone 50 mg oral tablet 50 mg=1 tab, PO, Bedtime, # 30 tab, 1 Refill(s), [id number] Start Date: 11/09/17 Status: Ordered Results No data available for [...] scan1 11/17/17 Completed Mammogram2, 3 11/17/17 Completed Removal impacted cerumen using 11/09/17 Completed irrigation/lavage, unilateral Diabetic Retinopathy Study 7 field 10/24/17 Completed [...]
--- OUTSIDE RECORDS SUMMARY | 2019-05-10 07:05 | XMS REPORT | Summary of Care ---
Author Author [facility] Organization [facility] Address Unknown Phone Unavailable Encounter HQ Christosntr_alifrancesca(FIN) [id number] Date(s): 03/28/19 - 03/29/19 [facility] [address] [address]- Vital Signs No data available for this section Problem List Condition Effective Dates Status Health Status Informant Diabetes Resolved mellitus(Confirmed) Hypertension, Active essential(Confirmed) GERD Active (gastroesophageal reflux disease)(Confirmed) Hypertension(Confirm Resolved ed) Mixed Active hyperlipidemia(Confi rmed) Obesity(Confirmed) Active Type 2 diabetes Active mellitus with hyperglycemia(Confir med) Allergies, Adverse Reactions, Alerts No Known Medication Allergies Medications pantoprazole 20 mg oral enteric coated tablet 20 mg=1 tab, PO, Daily, # 90 tab, 1 Refill(s), Pharmacy: [facility]/pharmacy #[id number] Start Date: 03/28/19 Stop Date: 03/28/19 Status: Completed Results No data available for this section Immunizations Given and Recorded Vaccine Date Status Refusal Reason influenza virus vaccine, inactivated1 05/19/18 Recorded influenza virus vaccine, inactivated2 08/08/17 Given influenza virus vaccine, inactivated 08/18/16 Recorded pneumococcal 13-valent vaccine3 11/09/17 Given pneumococcal 23-valent vaccine 07/19/15 Recorded 1Result Comment: [06/19/2018] @[facility] Pharmacy 2Result Comment: Patient waited in room ten mins no allergic reaction. 3Result Comment: Patient waited in room ten mins no allergic reaction. Procedures Procedure Date Related Diagnosis Body Site Status Diabetic Retinopathy Study 7 field 02/22/19 Completed stereoscopic fundus photography1, 2, 3 Mammogram4, 5, 6, 7 11/21/18 Completed Bone density scan8 11/17/17 Completed Colonoscopy9 04/13/17 Completed [id number] 04/13/17 Completed Tubal ligation Completed 1No DR. [...]
--- OUTSIDE RECORDS SUMMARY | 2019-05-10 07:05 | XMS REPORT | Summary of Care ---
Author Author [facility] Organization [facility] Address Unknown Phone Unavailable Encounter HQ Emerson(FIN) [id number] Date(s): 11/17/17 - 11/17/17 [facility] [address] [place] [address]- Encounter Diagnosis Encounter for screening mammogram for malignant neoplasm of breast (Final) - 11/23/17 Age-related osteoporosis without current pathological fracture (Final) - Discharge Disposition: Home or Self [...]
--- OUTSIDE RECORDS SUMMARY | 2019-05-10 07:06 | XMS REPORT | Summary of Care ---
Author Author [facility] Organization [facility] Address Unknown Phone Unavailable Encounter HQ Encntr_alifrancesca(FIN) [id number] Date(s): 04/09/18 - 04/10/18 [facility] [address], [address] [place] [address]- [phone] Vital Signs No data available for this [...] 23-valent vaccine 07/19/15 Recorded 1Result Comment: [06/19/2018] @[facility] Pharmacy 2Result Comment: Patient waited [...] one in [address] De La Curz 8Gastritis, Reflux esophagitis Dr De La Cruz Social History Social History Type Response Substance Abuse Use: None. Alcohol Never Smoking Status Never smoker; Exposure to Tobacco Smoke None; Cigarette Smoking Last 365 Days No; Reg Smoking Cessation Counseling No entered on: 07/31/18 Assessment and Plan No data available for this section
--- OUTSIDE RECORDS SUMMARY | 2019-05-10 07:06 | XMS REPORT | Summary of Care ---
Author Author [facility] Organization [facility] Address Unknown Phone Unavailable Encounter HQ Emerson(FIN) [id number] Date(s): 04/02/18 - 04/02/18 [facility] [address] [place] [address]- [facility] [phone] Encounter Diagnosis Diarrhea (Discharge Diagnosis) - 04/02/18 Diarrhea, unspecified (Final) - 04/06/18 Essential (primary) hypertension (Final) - Type 2 diabetes mellitus without complications (Final) - half-way (current) use of oral hypoglycemic drugs (Final) - Discharge Disposition: Home or Self Care Attending Physician: Darya Castro DO Vital Signs Most recent to 1 2 oldest [Reference Range]: Height 170.18 cm (04/02/18 8:17 AM) Temperature Oral 98.0 DegF 98.0 DegF [96.4-99.1 DegF] (04/02/18 9:58 AM) (04/02/18 8:17 AM) Blood Pressure 135/50 mmHg 156/63 mmHg [90-140/60-90 mmHg] (04/02/18 9:15 AM) *HI* (04/02/18 8:17 AM) Respiratory Rate 18 BRMIN 18 BRMIN [14-20 BRMIN] (04/02/18 9:15 AM) (04/02/18 8:17 AM) Peripheral Pulse 70 bpm 82 bpm Rate [60-100 bpm] (04/02/18 9:15 AM) (04/02/18 8:17 AM) Weight 79.545 kg (04/02/18 8:17 AM) Body Mass Index 27.47 m2 (04/02/18 8:17 AM) Problem List Condition Effective Dates Status Health Status Informant Diabetes Resolved mellitus(Confirmed) Hypertension, Active essential(Confirmed) GERD Active (gastroesophageal reflux disease)(Confirmed) Hyperlipidemia(Confi Active rmed) Hypertension(Confirm Resolved ed) Abnormal mammogram Active of left breast(Confirmed) Obesity(Confirmed) Active Diabetes mellitus Active type 2, controlled(Confirmed ) Allergies, Adverse Reactions, Alerts Substance Reaction Severity Status NKDA Active Medications ondansetron 4 mg, 2 mL, Route: IVP, Drug form: INJ, ONCE, Dosing Weight 79.545, kg, Priority : STAT, Start date: 04/02/18 8:22:00 CDT, Stop date: 04/02/18 8:22:00 CDT Notes: (Same as: Zofran) MEDICATION WASTE Product Size: 4 mgProduct Was amanda: ___ mg Start Date: 04/02/18 Stop Date: 04/02/18 Status: Discontinued Sodium Chloride 0.9% (Bolus) IV 1,000 mL, Infuse Over: 1 hr, Route: IV, ONCE, Priority: STAT, Dosing Weight 79.5 45 kg, Start date: 04/02/18 8:22:00 CDT, Stop date: 04/02/18 8:22:00 CDT Start Date: 04/02/18 Stop Date: 04/02/18 Status: Completed Results ELECTROLYTES Most recent to 1 oldest [Reference Range]: Sodium Lvl [135-145 146 mEq/L mEq/L] *HI* (04/02/18 8:30 AM) Potassium Lvl 3.5 mEq/L [3.5-5.1 mEq/L] (04/02/18 8:30 AM) Chloride Lvl [95-109 108 mEq/L mEq/L] (04/02/18 8:30 AM) CO2 [24-32 mEq/L] 29 mEq/L (04/02/18 8:30 AM) AGAP [10.0-20.0 12.5 mEq/L mEq/L] (04/02/18 8:30 AM) CHEM PANEL Most recent to 1 oldest [Reference Range]: Creatinine Lvl 0.54 mg/dL [0.50-1.40 mg/dL] (04/02/18 8:30 AM) eGFR 98 mL/min/1.73m2 1 *NA* (04/02/18 8:30 AM) BUN [7-22 mg/dL] 6 mg/dL *LOW* (04/02/18 8:30 AM) Glucose Lvl [70-99 131 mg/dL mg/dL] *HI* (04/02/18 8:30 AM) Total Protein 7.7 g/dL [6.4-8.4 g/dL] (04/02/18 8:30 AM) Albumin Lvl [3.5-5.0 3.7 g/dL g/dL] (04/02/18 8:30 AM) Globulin [2.7-4.2 4.0 g/dL g/dL] (04/02/18 8:30 AM) A/G Ratio [0.7-1.6] 0.9 (04/02/18 8:30 AM) Calcium Lvl 8.5 mg/dL [8.5-10.5 mg/dL] (04/02/18 8:30 AM) Phosphorus [2.5-4.5 2.8 mg/dL mg/dL] (04/02/18 8:30 AM) Magnesium Lvl 1.7 mg/dL [1.8-2.4 mg/dL] *LOW* (04/02/18 8:30 AM) ALT [0-65 unit/L] 53 unit/L (04/02/18 8:30 AM) AST [0-37 unit/L] 33 unit/L (04/02/18 8:30 AM) Alk Phos [39-136 106 unit/L unit/L] (04/02/18 8:30 AM) Bili Total [0.2-1.3 0.5 mg/dL mg/dL] (04/02/18 8:30 AM) Bili Direct [0.0-0.3 0.2 mg/dL mg/dL] (04/02/18 8:30 AM) Bili Indirect 0.3 mg/dL [0.0-1.0 mg/dL] (04/02/18 8:30 AM) Lipase Lvl [73-393 108 unit/L unit/L] (04/02/18 8:30 AM) Lactic Acid Lvl 1.0 mMol/L [0.5-2.2 mMol/L] (04/02/18 8:30 AM) 1Result Comment: The eGFR is calculated using [...] be mul tiplied by the estimated BMI. URINE AND STOOL Most recent to 1 oldest [Reference Range]: UA Turbidity [Clear] Slight *ABN* (04/02/18 8:30 AM) UA Color [Yellow] Yellow *NA* (04/02/18 8:30 AM) UA pH [5.0-8.0] 5.0 (04/02/18 8:30 AM) UA Spec Grav 1.014 [<=1.030] (04/02/18 8:30 AM) UA Glucose [Negative Negative mg/dL mg/dL] *NA* (04/02/18 8:30 AM) UA Blood [Negative] Moderate *ABN* (04/02/18 8:30 AM) UA Ketones [Negative Negative mg/dL mg/dL] *NA* (04/02/18 8:30 AM) UA Protein [Negative Negative mg/dL mg/dL] (04/02/18 8:30 AM) UA Urobilinogen 2.0 mg/dL [0.1-1.0 mg/dL] *HI* (04/02/18 8:30 AM) UA Bili [Negative] Negative *NA* (04/02/18 8:30 AM) UA Leuk Est Negative [Negative] (04/02/18 8:30 AM) UA Nitrite Negative [Negative] (04/02/18 8:30 AM) UA WBC [0-5 /HPF] 1 /HPF (04/02/18 8:30 AM) UA RBC [0-2 /HPF] 5 /HPF *HI* (04/02/18 8:30 AM) UA Bacteria [None Occasional /HPF Seen /HPF] *NA* (04/02/18 8:30 AM) UA Sq Epi [Few /LPF] Few /LPF *NA* (04/02/18 8:30 AM) UA Mucus [None Seen Few /LPF /LPF] *NA* (04/02/18 8:30 AM) HEMATOLOGY Most recent to 1 oldest [Reference Range]: WBC [3.7-10.4 K/CMM] 9.2 K/CMM (04/02/18 8:30 AM) RBC [4.20-5.40 4.63 M/CMM M/CMM] (04/02/18 8:30 AM) Hgb [12.0-16.0 g/dL] 14.3 g/dL (04/02/18 8:30 AM) Hct [36.0-48.0 %] 40.4 % (04/02/18 8:30 AM) MCV [80.0-98.0 fL] 87.2 fL (04/02/18 8:30 AM) MCH [27.0-31.0 pg] 30.9 pg (04/02/18 8:30 AM) MCHC [32.0-36.0 35.4 g/dL g/dL] (04/02/18 8:30 AM) RDW [11.5-14.5 %] 12.8 % (04/02/18 8:30 AM) MPV [7.4-10.4 fL] 8.2 fL (04/02/18 8:30 AM) Platelet [133-450 226 K/CMM K/CMM] (04/02/18 8:30 AM) Segs [45.0-75.0 %] 72.1 % (04/02/18 8:30 AM) Lymphocytes 18.3 % [20.0-40.0 %] *LOW* (04/02/18 8:30 AM) Monocytes [2.0-12.0 6.1 % %] (04/02/18 8:30 AM) Eosinophils [0.0-4.0 3.1 % %] (04/02/18 8:30 AM) Basophils [0.0-1.0 0.4 % %] (7/16/18 8:30 AM) Neutrophils # 6.6 K/CMM [1.5-8.1 K/CMM] (04/02/18 8:30 AM) Lymphocytes # 1.7 K/CMM [1.0-5.5 K/CMM] (04/02/18 8:30 AM) Monocytes # [0.0-0.8 0.6 K/CMM K/CMM] (04/02/18 8:30 AM) Eosinophils # 0.3 K/CMM [0.0-0.5 K/CMM] (04/02/18 8:30 AM) Immunizations Given and Recorded Vaccine Date Status Refusal Reason influenza virus vaccine, inactivated1 05/19/18 Recorded influenza virus vaccine, inactivated2 08/08/17 Given influenza virus vaccine, inactivated 08/18/16 Recorded pneumococcal 13-valent vaccine3 11/09/17 Given pneumococcal 23-valent vaccine 07/19/15 Recorded 1Result Comment: [06/19/2018] @[facility] Pharmacy 2Result Comment: Patient waited in room [...]
--- OUTSIDE RECORDS SUMMARY | 2019-05-10 07:06 | XMS REPORT ---
Author [email or web address] Address Unknown Phone Unavailable Care Team Providers Care Counselor Camp Name Role Phone GONZALEZ STRICKLAND Unavailable Unavailable MARY JO LAWSON Unavailable Unavailable Problems This patient has no known problems. Allergies, Adverse Reactions, Alerts This patient has no known allergies or adverse reactions. Medications This patient has no known medications. Results Test Description Test Time Test Comments Text Results Atomic Results Result Comments CHEST 2 VIEWS 2019-05-07 10:55:00 [place] [address] Patient Name: YISEL DAVILA MR #: [id number] : 1950 Age/Sex: 69/F Req #: [id number] Adm Physician: Ordered by: GONZALEZ STRICKLAND MD Report #: [id number] Location: OR Room/Bed: Procedure: [id number] DX/CHEST 2 VIEWS Exam Date: 05/07/19 Exam Time: 0955 REPORT STATUS: Signed Chest, 2 views, 05/07/2019. History: Preop, cholecystitis. Comparison: None available. Findings: The cardiomediastinal silhouette and pulmonary vasculature are within normal limits. There is minimal biapical pleural thickening. Linear opacities are present in the right lower lobe. The lungs are otherwise clear without evidence of consolidation or pleural effusion. Degenerative changes are present throughout the thoracic spine. There are no acute osseous or soft tissue abnormalities. Impression: Right lower lobe atelectasis. Signed by: Allegra Martinez on 05/07/2019 10:56 AM Dictated By: ALLEGRA MARTINEZ MD E lectronically Signed By: ALLEGRA MARTINEZ MD on 05/07/191055 Transcribed By: ITZEL on 05/07/191055 COPY TO: GONZALEZ STRICKLAND MD MRI BRAIN WO [place] [address] Patient Name: YISEL DAVILA MR #: [id number] : 1950 Age/Sex: 67/F Req #: [id number] Adm Physician: Ordered by: MARY JO LAWSON MD Report #: [id number] Location: MRI Room/Bed: Procedure: [id number] MRI/MRI BRAIN WO Exam Date: Exam Time: REPORT STATUS: Signed EXAMINATION: MRI of the brain without contrast. HISTORY: [place], right eye vision loss COMPARISON: None. TECHNIQUE: Sagittal T2; axial DWI, T2, FLAIR, T1-IR, T2 gradient echo; coronal FLAIR. Additional axial and coronal T1, T2 and T1 fat sat of the orbits as well as coronal STIR were obtained. IMAGE QUALITY: Adequate. FINDINGS: Orbits: Normal lobes, optic nerves and extraocular muscles Parenchyma: 1. Few scattered and mildly confluent periventricular and central bones T12. Hyperintense foci, most likely nonspecific chronic microvascular ischemic changes. 2. No mass, hemorrhage, acute or chronic infarcts. Skull: Unremarkable. Vessels: Expected flow voids present in the major arteries and dural sinuses. Extra-axial spaces: No abnormal signal intensity or mass effect. Brain volume: Within normal limits for age. Ventricles: No hydrocephalus or displacement. Foramen magnum: Unremarkable. Sella: Unremarkable. Paranasal / mastoid sinuses: No significant inflammatory disease. IMPRESSION: 1. Mild chronic microvascular ischemic changes. 2. No orbits abnormalities. Signed by: Dr. Zelalem Murdock M.D. on 07/06/2017 12:23 PM Dictated By: ZELALEM MURDOCK MD 1223 Transcribed By: ITZEL on 07/06/173 COPY TO: MARY JO LAWSON MD
--- OUTSIDE RECORDS SUMMARY | 2019-05-10 07:06 | XMS REPORT | Summary of Care ---
Author Author [facility] Organization [facility] Address Unknown Phone Unavailable Encounter HQ Emerson(FIN) [id number] Date(s): 03/12/19 - 03/12/19 [facility] [address] [address]- [phone] Discharge Disposition: Home or Self Care Attending Physician: Pamela Gibbons MD Vital Signs Most recent to 1 oldest [Reference Range]: Height 157.48 cm (03/12/19 9:29 AM) Temperature Oral 97.1 DegF [96.4-99.1 DegF] (03/12/19 9:29 AM) Blood Pressure 116/57 mmHg [90-140/60-90 mmHg] (03/12/19 9:29 AM) Respiratory Rate 16 BRMIN [14-20 BRMIN] (03/12/19 9:29 AM) Peripheral Pulse 60 bpm Rate [60-100 bpm] (03/12/19 9:29 AM) Weight 81.364 kg (03/12/19 9:29 AM) Body Mass Index 32.81 m2 (03/12/19 9:29 AM) Problem List Condition Effective Dates Status Health Status Informant Diabetes Resolved mellitus(Confirmed) Hypertension, Active essential(Confirmed) GERD Active (gastroesophageal reflux disease)(Confirmed) Hypertension(Confirm Resolved ed) Mixed Active hyperlipidemia(Confi rmed) Obesity(Confirmed) Active Type 2 diabetes Active mellitus with hyperglycemia(Confir med) Allergies, Adverse Reactions, Alerts No Known Medication Allergies Medications amLODIPine 10 mg oral tablet =1 tab, PO, Daily, # 90 tab, 1 Refill(s), Pharmacy: [facility]/pharmacy #[id number] Start Date: 03/12/19 Status: Ordered atorvastatin 10 mg oral tablet See Instructions, TOME LISA TABLETA POR VIA ORAL TODOS LOS CARDENAS AL ACOSTARSE, # 9 0 tab, 1 Refill(s), [id number] Start Date: 03/12/19 Status: Ordered carvedilol 12.5 mg oral tablet See Instructions, TOME 2 TABLETAS POR VIA ORAL EN LA MANANA Y 1 TABLETA EN LA NO MIHAELA, # 45 tab, 1 Refill(s), Pharmacy: [facility] #[id number] Start Date: 03/12/19 Status: Ordered furosemide 20 mg oral tablet 20 mg=1 tab, PO, BID, # 180 tab, 1 Refill(s), [id number], Dose increased to BID Start Date: 03/12/19 Stop Date: 09/08/19 Status: Ordered lisinopril 40 mg oral tablet 40 mg=1 tab, PO, BID, # 180 tab, 1 Refill(s), Pharmacy: [facility] #[id number] Start Date: 03/12/19 Stop Date: 09/08/19 Status: Ordered metFORMIN 500 mg oral tablet 1,000 mg=2 tab, PO, BID-Meals, # 360 tab, 1 Refill(s) Start Date: 03/12/19 Stop Date: 03/12/19 Status: Discontinued metFORMIN 500 mg oral tablet 1,000 mg=2 tab, PO, BID-Meals, # 360 tab, 1 Refill(s), [facility] Start Date: 03/12/19 Stop Date: 09/08/19 Status: Ordered oxybutynin 5 mg oral tablet 5 mg=1 tab, PO, BID, # 180 tab, 1 Refill(s) Start Date: 03/12/19 Status: Ordered pantoprazole 20 mg oral enteric coated tablet See Instructions, TAKE 1 TABLET BY MOUTH DAILY, # 90 tab, 1 Refill(s), [id number] Start Date: 03/12/19 Status: Ordered Results No data available for this section Immunizations Given and Recorded Vaccine Date Status Refusal Reason influenza virus vaccine, inactivated1 05/19/18 Recorded influenza virus vaccine, inactivated2 08/08/17 Given influenza virus vaccine, inactivated 08/18/16 Recorded pneumococcal 13-valent vaccine3 11/09/17 Given pneumococcal 23-valent vaccine 07/19/15 Recorded 1Result Comment: [06/19/2018] @[facility] Pharmacy 2Result Comment: Patient waited in room ten mins no allergic reaction. 3Result Comment: Patient waited in room ten mins no allergic reaction. Procedures Procedure Date Related Diagnosis Body Site Status Diabetic Retinopathy Study 7 field 02/22/19 Completed stereoscopic fundus photography1, 2, 3 Mammogram4, 5, 6, 7 11/21/18 Completed Bone density scan8 11/17/17 Completed Colonoscopy9 04/13/17 Completed [id number] 04/13/17 Completed Tubal ligation Completed 1No DR. [...]
--- OUTSIDE RECORDS SUMMARY | 2019-05-10 07:06 | XMS REPORT | Summary of Care ---
Author Author [facility] Organization [facility] Address Unknown Phone Unavailable Encounter HQ Encntr_alifrancesca(FIN) [id number] Date(s): 04/03/18 - 04/04/18 [facility] [address], [address] [place] [address]- [phone] Vital Signs No data available for this [...] 23-valent vaccine 07/19/15 Recorded 1Result Comment: [06/19/2018] @[facility] Pharmacy 2Result Comment: Patient waited in room [...]
--- NOTE | 2019-05-10 13:41 | Operative Report ---
DATE OF PROCEDURE: 05/10/2019 SURGEON: Osvaldo Morin MD PREOPERATIVE DIAGNOSES: Cholelithiasis, chronic cholecystitis, diabetes, obesity. POSTOPERATIVE DIAGNOSES: Cholelithiasis, chronic cholecystitis, diabetes, obesity. PROCEDURE PERFORMED: Laparoscopic cholecystectomy. ANESTHESIA: General endotracheal. ESTIMATED BLOOD LOSS: Minimal. DRAINS: None. COMPLICATIONS: None. INDICATION AND FINDINGS: The patient is a pleasant 69-year-old female admitted for cholecystectomy. She was found by her primary care physician to have a gallstone during workup for hematuria. The patient complains of dyspepsia, but denied any pain or vomiting. INTRAOPERATIVE FINDINGS: The patient had a gallbladder that was replaced by this large single mass of a conglomerate of large stone and mud that were all plastered together. We initially felt that the gallbladder was distended because of bile and multiple attempts at aspiration of the gallbladder were unsuccessful due to the fact that the gallbladder in essence was replaced by this mass of bile stones, gravel and mud. The cystic duct nor the common bile duct were dilated. DESCRIPTION OF PROCEDURE: With the patient lying on the operative table in the supine position and after administration of general endotracheal anesthesia, she was prepped and draped for laparoscopic cholecystectomy. The procedure was begun by establishing the pneumoperitoneum in the right upper quadrant and midclavicular line because of previous pelvic surgery. A pneumoperitoneum was insufflated to 15 mm of pressure and then a 5 mm trocar placed in that location and then we introduced the camera. We then placed in the umbilical site a 10/11 trocar, then introduced the 10 mm camera in that location and under direct vision, we placed a 10/11 trocar in the subxiphoid region and then another fourth trocar in the right upper quadrant. We began the dissection. The gallbladder was folded on itself in the area of the neck. It was difficult to grasp the gallbladder to expose the hepatorenal ligament, but we were unable to do so and we had to place an extra trocar in the left upper quadrant to be able to expose the operative field appropriately. The dissection was exterior, slow, and methodical, but we were eventually able to identify the cystic duct high in the neck of the gallbladder. We saw the common bile duct junction, we saw the common hepatic duct. We saw the cystic artery coming of the hepatic artery before we transected any one of those two structures, which were transected between titanium clips. Then, the gallbladder was slowly taken for the liver bed using a combination of cautery, traction, countertraction, hydrodissection until we removed the gallbladder, placed in an endobag and removed it through the umbilical port. After we did that, we inspected the operative field. There had been some oozing from the undersurface of the liver and we had controlled that with Surgicel. We inspected that area thoroughly before closing the patient and there was no bleeding. Then we closed the wound using 2-0 Vicryl in the umbilical site and 3-0 Vicryl in that location as well as the subxiphoid port and then we closed the skin of all the ports using 5-0 subcuticular Vicryl. 0.25% Marcaine with epinephrine was given as local block at the end of the case. The patient tolerated the procedure well, taken to recovery room in stable condition. MD ARIELA Trent/BG /[id number]
[2019-05-10 14:30] VITALS: BP 113/56
== END | disposition home or self-care (01) ==
LOC: OR 07:00
PROVIDERS: ATTEND Surgery
DX: K80.10 Calculus of gallbladder with chronic cholecystitis without obstruction (principal); Z01.810 Encounter for preprocedural cardiovascular examination; Z01.812 Encounter for preprocedural laboratory examination; Z01.811 Encounter for preprocedural respiratory examination; E11.9 Type 2 diabetes mellitus without complications; K21.9 Gastro-esophageal reflux disease without esophagitis; I10 Essential (primary) hypertension; Z79.84 Long term (current) use of oral hypoglycemic drugs; Z79.82 Long term (current) use of aspirin; E66.9 Obesity, unspecified; R10.13 Epigastric pain; Z68.30 Body mass index [BMI] 30.0-30.9, adult
CPT/HCPCS: 36415; 71046; 80048; 81003; 82948; 85025; 88304; 93005; C1766; J0690; J1100; J1885; J2001; J2250; J2405; J3010